=== PATIENT | female | born 1945 | race Caucasian/White ===

== ENCOUNTER → 2018-08-22 08:59 | Outpatient (CLI) | payer MEDICARE, SELFPAY ==
[2018-08-22 10:02] LABS: Add Manual Diff / Slide Review NO; Basophils Absolute Auto 0 /uL (0-100); Basophils Percent Auto 0.2 % (0-2); Eosinophils Absolute Auto 0 /uL (0-450); Eosinophils Percent Auto 1.1 % (2-4); Hematocrit 39.3 % (36-46); Lymphocytes Absolute Auto 1500 /uL (1100-4500); Lymphocytes Percent Auto 34.3 % (25-40); Mean Corpuscular HGB Conc 33.1 % (30-36); Mean Corpuscular Hemoglobin 31.2 PG (26-34); Mean Corpuscular Volume 94.1 fL (80-100); Monocytes Absolute Auto 400 /uL (0-900); Monocytes Percent Auto 9.1 % (3-14); Neutrophils Absolute Auto 2400 /uL (1500-7000); Neutrophils Percent Auto 55.3 % (50-75); Platelet Count 209 X10^3/uL (150-400); Red Blood Cell Count 4.17 X10^6/uL (4.0-5.2); Red Cell Distribution Width 13.1 % (11.6-14.8); White Blood Cell Count 4.3 X10^3/uL (4.5-11.0)
[2018-08-22 10:51] LABS: Alanine Aminotransferase 30 IU/L (9-52); Albumin 4.3 g/dL (3.5-5.0); Albumin Globulin Ratio 1.7 (1.0-2.8); Alkaline Phosphatase 129 U/L (38-126); Aspartate Aminotransferase 25 IU/L (14-36); BUN Creatinine Ratio 22.5 (6-22); Blood Urea Nitrogen 18 mg/dL (7-17); Calcium 9.7 mg/dL (8.4-10.2); Carbon Dioxide 23 mmol/L (22-32); Chloride 109 mmol/L (98-107); Cholesterol 98 mg/dL (140-199); Estimated Glomerular Filt Rate > 60.0 mL/min (>60); Globulin 2.5 g/dL (1.7-4.1); Glucose 90 mg/dL (80-110); HDL Cholesterol 40 mg/dL (40-60); HEMOLYSIS < 15 (0-50); LDL Cholesterol Calculated 42 mg/dL (<100); Potassium 4.1 mmol/L (3.4-5.1); Sodium 141 mmol/L (137-145); Total Protein 6.8 g/dL (6.3-8.2); Triglycerides 78 mg/dL (35-150)
[2018-08-22 11:14] LABS: Thyroid Stimulating Hormone 3.93 uIU/mL (0.47-4.68)
== END ==
PROVIDERS: PCP Family Medicine; Visit Provider Family Medicine
DX: I10 Essential (primary) hypertension (principal); Z51.81 Encounter for therapeutic drug level monitoring
CPT/HCPCS: 36415; 80053; 80061; 84443; 85025

== ENCOUNTER → 2018-09-13 08:40 | Outpatient (CLI) | payer MEDICARE, SELFPAY ==
[2018-09-13 09:37] LABS: Appearance Urine UA CLEAR; Bilirubin Urine UA NEGATIVE (NEGATIVE); Color Urine UA YELLOW; Glucose Urine UA NEGATIVE (Negative); Ketones Urine UA NEGATIVE (NEGATIVE); Leukocyte Esterase Urine UA NEGATIVE (NEGATIVE); Nitrite Urine UA NEGATIVE (Negative); Occult Blood Urine UA NEGATIVE (Negative); Protein Urine UA NEGATIVE (Negative); Urobilinogen Urine UA 0.2 E.U./dL (0.2)
== END ==
PROVIDERS: PCP Family Medicine; Visit Provider Family Medicine
DX: R30.0 Dysuria (principal)
CPT/HCPCS: 81003

== ENCOUNTER 2019-01-03 10:07 | Emergency (ER) | payer MEDICARE, SELFPAY ==
[2019-01-03 10:10] VITALS: BP 155/67; PULSE 68; RESP 11; TEMP 36.3; O2SAT 100
--- NOTE | 2019-01-03 10:21 | DI.RAD.S_ITS ---
PROCEDURE: XR CHEST 1V INDICATIONS: chest pain TECHNIQUE: One view of the chest was acquired. COMPARISON: None. FINDINGS: Surgical changes and devices: None. Lungs and pleura: Lungs are clear. No pleural effusions or pneumothorax. Mediastinum: Mediastinal contours appear normal. Heart size is normal. Bones and chest wall: No suspicious bony lesions. Overlying soft tissues appear unremarkable. IMPRESSION: No acute process. Dictated by: Yony Dover M.D. on 01/03/2019 at 10:31 Approved by: Yony Dover M.D. on 01/03/2019 at 10:31
[2019-01-03 10:40] LABS: Add Manual Diff / Slide Review NO; Basophils Absolute Auto 0 /uL (0-100); Basophils Percent Auto 0.3 % (0-2); Eosinophils Absolute Auto 0 /uL (0-450); Eosinophils Percent Auto 0.5 % (2-4); Hematocrit 38.6 % (36-46); Hemoglobin 12.8 g/dL (12.0-16.0); Lymphocytes Absolute Auto 800 /uL (1100-4500); Lymphocytes Percent Auto 12.2 % (25-40); Mean Corpuscular HGB Conc 33.2 % (30-36); Mean Corpuscular Hemoglobin 31.3 PG (26-34); Mean Corpuscular Volume 94.3 fL (80-100); Monocytes Absolute Auto 400 /uL (0-900); Monocytes Percent Auto 6.4 % (3-14); Neutrophils Absolute Auto 5000 /uL (1500-7000); Neutrophils Percent Auto 80.6 % (50-75); Platelet Count 178 X10^3/uL (150-400); Red Cell Distribution Width 13.1 % (11.6-14.8); White Blood Cell Count 6.1 X10^3/uL (4.5-11.0)
--- NOTE | 2019-01-03 10:47 | DI.CT.S_ITS ---
PROCEDURE: CT HEAD/BRAIN WO CON INDICATIONS: vertigo like symptoms TECHNIQUE: Noncontrast 4.5 mm thick angled axial sections acquired from the foramen magnum to the vertex, with coronal and sagittal reformats. For radiation dose reduction, the following was used: automated exposure control, adjustment of mA and/or kV according to patient size. COMPARISON: None. FINDINGS: Image quality: Diagnostic. CSF spaces: Basal cisterns are patent. No extra-axial fluid collections. Ventricles are normal in size and shape. Brain: No midline shift. No intracranial masses or hemorrhage. Billings-white matter interface is normal. Subtle areas of low attenuation appear to be present within the periventricular white matter of the supratentorial brain most appreciable in the bilateral frontal regions. Skull and face: Calvarium and visualized facial bones are intact, without suspicious lesions. Sinuses: Visualized sinuses and mastoids are clear. IMPRESSION: 1. No acute intracranial hemorrhage. 2. Mild chronic small vessel ischemic changes appear to be present. Dictated by: Chapo Laguerre M.D. on 01/03/2019 at 10:02 Approved by: Chapo Laguerre M.D. on 01/03/2019 at 10:04
[2019-01-03 10:48] LABS: INR 1.1 (0.9-1.3); Prothrombin Time 12.2 SECONDS (10.1-12.7)
[2019-01-03 10:50] LABS: Alanine Aminotransferase 27 IU/L (9-52); Albumin 4.2 g/dL (3.5-5.0); Albumin Globulin Ratio 1.7 (1.0-2.8); Alkaline Phosphatase 110 U/L (38-126); Aspartate Aminotransferase 23 IU/L (14-36); BUN Creatinine Ratio 31.7 (6-22); Bilirubin Total 0.8 mg/dL (0.2-1.3); Blood Urea Nitrogen 19 mg/dL (7-17); Calcium 9.2 mg/dL (8.4-10.2); Carbon Dioxide 22 mmol/L (22-32); Chloride 113 mmol/L (98-107); Creatine Kinase 56 U/L (30-135); Estimated Glomerular Filt Rate > 60.0 mL/min (>60); Globulin 2.5 g/dL (1.7-4.1); Glucose 121 mg/dL (80-110); HEMOLYSIS < 15 (0-50); Lipase 104 U/L (23-300); Potassium 3.5 mmol/L (3.4-5.1); Sodium 142 mmol/L (137-145); Total Protein 6.7 g/dL (6.3-8.2)
[2019-01-03 10:51] LABS: PTT Partial Thromboplastin Tim 33 SECONDS (26.4-36.2)
--- NOTE | 2019-01-03 10:58 | ED_ITS ---
HPI - Dizziness General Chief Complaint: Dizziness Stated Complaint: dizzy/cold sweats/nausea today Time Seen by Provider: 01/03/19 10:31 Source: patient Mode of arrival: Ambulatory Limitations: no limitations History of Present Illness HPI Narrative: This is a 73-year-old female comes to the emergency department wi th complaint of dizziness, she states that she woke up this morning at a.m. and felt normal, woke up again at 7:30 a.m. and felt dizzy like the room was spinning. She states she was walking around like a drunk person. She started to feel better had a drink coffee still had some symptoms had an episode of vomiting and then felt better. She has not had similar symptoms in the past. She had some allergy symptoms several weeks ago but no recent nasal congestion or cold. She has had some buzzing in her ears the last several days. She has had some mild headache just on the right side behind her eyes. 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 She denies any chest pain, pressure or shortness of breath. She denies any nausea currently. She denies any new issues with bowel movements but has chronic diarrhea and states has had issues with incontinence and now has a [employer]tr[employer] device to help control her bowels. She has had no urinary changes. She takes lisinopril daily and was increased to 40 mg several months ago. She denies any other medical issues recently. She has had a cholecystectomy, a gastric bypass in 1975, Medtronic device placed, appendectomy. No tobacco, rare alcohol, no illicit. Related Data Previous Rx's Medication Instructions Recorded lisinopril 40 mg tablet 40 mg PO DAILY #90 tab 11/08/18 meclizine 25 mg PO TID PRN #20 tab 01/03/19 Allergies Allergy/AdvReac Type Severity Reaction Status Date / Time codeine [CODEINE] Allergy Unknown Verified 01/03/19 10:19 Penicillins [PENICILLINS] Allergy Unknown Verified 01/03/19 10:19 Sulfa (Sulfonamide Allergy Unknown Verified 01/03/19 10:19 Antibiotics) [SULFA (SULFONAMIDE ANTIBIOTICS)] TAPE Allergy Unknown Uncoded 11/08/18 13:27 Review of Systems Review of Systems ROS Unobtainable: All systems reviewed & are unremarkable except as noted in HPI and below Constitutional Constitutional: Denies chills, Denies fever(s), Reports headache(s), Denies lethargy and Denies weakness Eyes Eyes: Reports change in vision (slowly, no acute change) and Denies diplopia ENT Ears, Nose, Mouth, and Throat: Reports as per HPI, Reports vertigo, Denies otalgia, Reports headache(s), Denies hearing loss (buzzing in ears present for several days.), Denies nasal congestion, Reports disequilibrium, Reports tinnitus and Denies other (facial droop) Cardiovascular Cardiovascular: Denies chest pain, Denies syncope, Denies edema, Denies lightheadedness, Denies palpitations, Denies dyspnea and Denies dyspnea on exertion Respiratory Respiratory: Denies chest congestion, Denies cough, Denies dyspnea and Denies dyspnea on exertion Gastrointestinal Gastrointestinal: Denies abdominal pain, Denies change in bowel habits, Reports fecal incontinence (has medtronic device in place, no recent episodes), Reports diarrhea (chronic), Reports nausea (now resolved) and Reports vomiting (now resolved) Genitourinary Genitourinary: Denies hematuria, Denies urinary frequency, Denies dysuria, Denies flank pain, Denies urinary incontinence and Denies urinary urgency Musculoskeletal Musculoskeletal: Denies muscle weakness, Denies numbness and Denies tingling Integumentary/Breasts Skin/Breast: Denies rash Neurologic Neurologic: Reports as per HPI, Denies abnormal speech, Denies confusion, Reports vertigo, Denies syncope, Reports headache(s), Denies focal weakness, Denies numbness, Denies sensory deficit, Denies tingling, Denies paresthesias, Reports disequilibrium and Denies weakness Psychiatric Psychiatric: Denies confusion Endocrine Endocrine: Denies palpitations [facility] Medical History Chickenpox (Resolved 1954) Colon polyps (Resolved 1989) Fecal incontinence (Resolved 2015) Fractures (Resolved 1960) Generalized headaches (Resolved Unknown) Hypertension (Chronic 2004) Measles (Resolved 1960) Osteopenia (Chronic 06/2005) Surgical History History of gastric bypass History of rectal surgery (Resolved 1990) Hx of appendectomy (Resolved 1957) Hx of cholecystectomy (Resolved 1964) Family History (Updated 09/11/17 @ 17:36 by Chanell Espinosa LPN) Child Age: 52 Diabetes mellitus Child Age: 47 Diabetes mellitus Sister Age: 66 Diabetes mellitus Sister Age: 64 Diabetes mellitus Sister Age: 62 Diabetes mellitus Family/Other No problems noted. Family/Other No problems noted. Mother Parkinson disease Hypertension Grandfather Heart attack Grandmother Cancer Grandfather No problems noted. Grandmother No problems noted. Father Diabetes mellitus Hypertension Heart disease Social History Smoking Status: Never smoker Family History Child Age: 52 Diabetes mellitus Child Age: 47 Diabetes mellitus Sister Age: 66 Diabetes mellitus Sister Age: 64 Diabetes mellitus Sister Age: 62 Diabetes mellitus Family/Other No problems noted. Family/Other No problems noted. Mother Parkinson disease Hypertension Grandfather Heart attack Grandmother Cancer Grandfather No problems noted. Grandmother No problems noted. Father Diabetes mellitus Hypertension Heart disease Social History (Updated 01/03/19 @ 11:27 by Zena Nieves DO) Smoking Status: Never smoker alcohol intake: current substance use type: does not use Exam Narrative Exam Narrative: GEN: well nourished, well appearing elderly female, alert and oriented x 3, patient appears to be in mild distress. HEENT: Atraumatic, pupils are equal round reactive to light, extraocular movements are intact, no nystagmus, [place]-Hallpike is negative, nares are clear, TMs are clear with no fluid, there is no conjunctival pallor. Throat is clear without any exudates, erythema, tonsillar enlargement or uvular deviation, no facial droop. HEART: Regular rate and rhythm without murmur, clicks, rubs. LUNGS:Lungs clear to auscultation, no wheezes, rales, crackles, chest moves symmetrically ABD:bowel sounds normal, soft, non-tender, no guarding, rebound, rigidity, no masses noted, no hepatosplenomegaly MSCL: Non-tender, no muscle atrophy, muscles strength 5/5 upper and lower extremities, full range of motion NEURO:CN 2-12 intact, sensation normal, reflexes 2/4 upper and lower extremities. finger nose finger test normal, heel andino test normal SKIN: no rash, no petechiae, no ecchymosis. Initial Vital Signs Initial Vital Signs: Vital Signs Temperature 97.4 F L 01/03/19 10:10 Pulse Rate 68 01/03/19 10:10 Respiratory Rate 11 L 01/03/19 10:10 Blood Pressure 155/67 H 01/03/19 10:10 Pulse Oximetry 100 01/03/19 10:10 Scores NIH Stroke Scale Level of Conciousness: Alert, keenly responsive Ask month/age: Answers both questions correctly. Open/close eyes, close hand: Performs both tasks correctly Best gaze horizontal: Normal Visual simons: No visual loss Facial palsy: Normal symetrical movement Left arm drift: No drift for full 10 sec Right arm drift: No drift for full 10 sec Left leg drift: No drift for full 10 sec Right leg drift: No drift for full 10 sec Limb ataxia: Absent Sensory on face/arms/legs: Normal, no sensory loss Best language: No aphasia, normal Dysarthria: Normal Extinction or inattention: No abnormality Total NIH Stroke scale score: 0 Course Orders Ordered: Discontinued Medications Meclizine HCl (Antivert) 25 mg PO NOW ONE Stop: 01/03/19 10:48 Last Admin: 01/03/19 11:02 Dose: 25 mg Documented by: STEFFANIE Vital Signs Vital signs: Vital Signs - 8 hr 01/03/19 10:10 01/03/19 11:00 Temperature 97.4 F L Pulse Rate 68 68 Respiratory Rate 11 L 13 Blood Pressure 155/67 H Blood Pressure [Left Arm] 150/61 H Pulse Oximetry 100 100 MDM - Dizziness Lab Data Attestation: I reviewed the patient's lab results. Result diagrams: 01/03/19 10:24 01/03/19 10:24 Labs: Lab Results 01/03/19 01/03/19 01/03/19 Range/Units 10:24 10:24 10:24 WBC 6.1 (4.5-11.0) X10^3/uL RBC 4.10 (4.0-5.2) X10^6/uL Hgb 12.8 (12.0-16.0) g/dL Hct 38.6 (36-46) % MCV 94.3 (80-100) fL MCH 31.3 (26-34) PG MCHC 33.2 (30-36) % RDW 13.1 (11.6-14.8) % Plt Count 178 (150-400) X10^3/uL Neut % (Auto) 80.6 H (50-75) % Lymph % (Auto) 12.2 L (25-40) % [place] % (Auto) 6.4 (3-14) % Eos % (Auto) 0.5 L (2-4) % Baso % (Auto) 0.3 (0-2) % Neut # (Auto) 5000 (7623-4213) /uL Lymph # (Auto) 800 L (2109-3670) /uL [place] # (Auto) 400 (0-900) /uL Eos # (Auto) 0 (0-450) /uL Baso # (Auto) 0 (0-100) /uL PT 12.2 (10.1-12.7) SECONDS INR 1.1 (0.9-1.3) APTT 33 (26.4-36.2) SECONDS Sodium 142 (137-145) mmol/L Potassium 3.5 (3.4-5.1) mmol/L Chloride 113 H (98-107) mmol/L Carbon Dioxide 22 (22-32) mmol/L BUN 19 H (7-17) mg/dL Creatinine 0.60 (0.52-1.04) mg/dL Estimated GFR > 60.0 (>60) mL/min BUN/Creatinine Ratio 31.7 H (6-22) Glucose 121 H (80-110) mg/dL Calcium 9.2 (8.4-10.2) mg/dL Total Bilirubin 0.8 (0.2-1.3) mg/dL AST 23 (14-36) IU/L ALT 27 (9-52) IU/L Alkaline Phosphatase 110 (38-126) U/L Total Creatine Kinase 56 (30-135) U/L CK-MB (CK-2) TNP CK-MB (CK-2) Rel Index TNP Troponin I < 0.012 (0.01-0.034) ng/mL Total Protein 6.7 (6.3-8.2) g/dL Albumin 4.2 (3.5-5.0) g/dL Globulin 2.5 (1.7-4.1) g/dL Albumin/Globulin Ratio 1.7 (1.0-2.8) Lipase 104 (23-300) U/L Imaging Data CT scan - head: Radiologist's impression: [address] [address] [address] Scan Report Signed Patient: Charline Castro [facility]#: [id number] : 5Acct:[id number] Age/Sex: 73 / FDate of Service: 01/03/19 Loc: ED Accession Number: [id number] Procedure: CT head/brain wo con Ordering Provider: Zena Nieves D.O. PROCEDURE: CT HEAD/BRAIN WO CON INDICATIONS: vertigo like symptoms TECHNIQUE: Noncontrast 4.5 mm thick angled axial sections acquired from the foramen magnum to the vertex, with coronal and sagittal reformats. For radiation dose reduction, the following was used: automated exposure control, adjustment of mA and/or kV according to patient size. COMPARISON: None. FINDINGS: Image quality: Diagnostic. CSF spaces: Basal cisterns are patent. No extra-axial fluid collections. Ventricles are normal in size and shape. Brain: No midline shift. No intracranial masses or hemorrhage. Bill[place]-white matter interface is normal. Subtle areas of low attenuation appear to be present within the periventricular white matter of the supratentorial brain most appreciable in the bilateral frontal regions. Skull and face: Calvarium and visualized facial bones are intact, without suspicious lesions. Sinuses: Visualized sinuses and mastoids are clear. IMPRESSION: 1. No acute intracranial hemorrhage. 2. Mild chronic small vessel ischemic changes appear to be present. Dictated by: Chapo Laguerre M.D. on 01/03/2019 at 10:02 Approved by: Chapo Laguerre M.D. on 01/03/2019 at 10:04 Chest x-ray: Radiologist's impression: [address] [address] XRay Report Signed Patient: Charline Castro [facility]#: [id number] : 5Acct:[id number] Age/Sex: 73 / FDate of Service: 01/03/19 Loc: ED Accession Number: [id number] Procedure: XR chest 1V Ordering Provider: Zena Nieves D.O. PROCEDURE: XR CHEST 1V INDICATIONS: chest pain TECHNIQUE: One view of the chest was acquired. COMPARISON: None. FINDINGS: Surgical changes and devices: None. Lungs and pleura: Lungs are clear. No pleural effusions or pneumothorax. Mediastinum: Mediastinal contours appear normal. Heart size is normal. Bones and chest wall: No suspicious bony lesions. Overlying soft tissues appear unremarkable. IMPRESSION: No acute process. Dictated by: Yony Dover M.D. on 01/03/2019 at 10:31 Approved by: Yony Dover M.D. on 01/03/2019 at 10:31 ECG Data Attestation: I personally reviewed and interpreted this ECG as follows: Prior ECG tracings: not available for review Interpretation: Sinus rhythm rate of 62 VA 182 QRS of 93 and QTC of 405. Nonspecific ST change. MDM Narrative Medical decision making narrative: Patient comes in with acute onset of vertigo, patient woke up with it she is actually feeling much better at this time. Patient on exam has a negative NIH with no acute neurologic deficits. [place]- Hallpike was negative for BPPV, head CT and lab work show no acute changes, EKG does not show any acute changes today indicating a cardiac cause, chest x-ray is negative. Lab work shows neutrophils at 80%, normal coags, normal chemistry with negative troponin. Glucose is 121, BUN is 19 with a chloride of 113 but otherwise normal electrolytes. Discussed with patient my suspicion for a CVA or TIA being the cause of her symptoms as much lower without any other neurologic findings. Patient and I discussed follow-up with ENT as needed. If she continues to fine meclizine helpful she can continue with this. Patient ambulated without issue in department and states that she ambulated into the ER without issue. Discharge Plan Departure Patient Disposition: Home Clinical Impression: Vertigo Discharge Date/Time: 01/03/19 11:59 Instructions: DI for Vertigo Activity Restrictions/Additional Instructions: Follow-up with primary care and/or ENT in the next 2-3 days if your symptoms are not resolving. Call for an appointment. You may continue meclizine 1-2 tablets every 8 hours as needed for symptoms. Medication can make you sleepy so do not drive, perform hazardous activities or make any major decisions while taking it. Your prescription was sent to [facility] in [place]. Return to the emergency department for new neurologic changes, fevers greater 100.4 F, new weakness, numbness, inability to use your extremities, new difficulty with speech, sudden severe headaches, sudden vision changes, persistent vomiting, lightheadedness, passing out or other new or concerning s ymptoms. Prescriptions: New meclizine 25 mg tablet,chewable 25 mg PO TID PRN (Reason: dizziness) Qty: 20 RF: 0 No Action lisinopril 40 mg tablet 40 mg PO DAILY Qty: 90 RF: 1 Referrals: Willian Arenas MD [Physician] - Reena Sotomayor DO [Primary Care Provider] -
[2019-01-03 11:00] VITALS: BP 150/61; PULSE 68; RESP 13; O2SAT 100
[2019-01-03 11:02] LABS: Troponin I < 0.012 ng/mL (0.01-0.034)
[2019-01-03] MEDS: MECLIZINE HCL 12.5 MG TABLET 25 MG PO (11:02)
[2019-01-03 11:30] VITALS: BP 136/63; PULSE 66; RESP 14; O2SAT 100
== END 2019-01-03 11:59 | disposition home or self-care (01) ==
PROVIDERS: Emergency Provider Emergency Medicine; PCP Family Medicine
DX: R42 Dizziness and giddiness (principal); R07.9 Chest pain, unspecified
CPT/HCPCS: 36415; 70450; 71045; 80053; 82550; 83690; 84484; 85025; 85610; 85730; 93005; 99283; 99285

== ENCOUNTER 2019-06-16 08:05 | Emergency (ER) | payer MEDICARE, SELFPAY ==
[2019-06-16 08:14] VITALS: BP 188/86; PULSE 67; RESP 18; TEMP 36.8; O2SAT 99; BMI 22.8
--- NOTE | 2019-06-16 08:22 | DI.RAD.S_ITS ---
PROCEDURE: XR CHEST 1V INDICATIONS: chest pain TECHNIQUE: One view of the chest was acquired. COMPARISON: [facility], CR, XR CERVICAL SPINE 2V OR 3V, 06/16/2019, 8:42. [facility], CR, XR SHOULDER LT MIN 2V, 06/16/2019, 8:40. [facility], CR, XR CHEST 1V, 01/03/2019, 10:25. FINDINGS: Surgical changes and devices: None. Lungs and pleura: An incomplete inspiratory result is noted, causing a crowded appearance to the lung markings. No focal infiltrates are seen. No pneumothorax or significant pleural effusions are seen. Mediastinum: Mediastinal contours appear normal. Heart size is normal. Bones and chest wall: No suspicious bony lesions. Age-appropriate bony degenerative changes are seen. Overlying soft tissues appear unremarkable. IMPRESSION: Portable chest within normal limits. Dictated by: Cedric Jimenez M.D. on 06/16/2019 at 8:12 Approved by: Cedric Jimenez M.D. on 06/16/2019 at 8:13
--- NOTE | 2019-06-16 08:33 | DI.RAD.S_ITS ---
PROCEDURE: XR SHOULDER LT MIN 2V INDICATIONS: no fall left shoulder pain TECHNIQUE: 3 views of the shoulder were acquired. COMPARISON: [facility], CR, XR CHEST 1V, 06/16/2019, 8:34. [facility], CR, XR CERVICAL SPINE 2V OR 3V, 06/16/2019, 8:42. FINDINGS: Bones: No fractures or dislocations. No suspicious bony lesions. Visualized ribs appear intact. Age-appropriate bony degenerative changes are seen. Soft tissues: No suspicious soft tissue calcifications. The visualized lung demonstrates an unremarkable appearance. IMPRESSION: Unremarkable imaging examination for age. Dictated by: Cedric Jimenez M.D. on 06/16/2019 at 8:13 Approved by: Cedric Jimenez M.D. on 06/16/2019 at 8:14
--- NOTE | 2019-06-16 08:33 | DI.RAD.S_ITS ---
PROCEDURE: XR CERVICAL SPINE 2V OR 3V INDICATIONS: tender posterior thoracic-cervical spine junction TECHNIQUE: 3 view(s) of the cervical spine were acquired. COMPARISON: [facility], CR, XR CHEST 1V, 06/16/2019, 8:34. [facility], CR, XR SHOULDER LT MIN 2V, 06/16/2019, 8:40. FINDINGS: Bones: No fractures or dislocations to the C7 level. The lateral masses of C1 appear intact on the odontoid view. No suspicious bony lesions. Moderate degenerative changes are seen throughout. Soft tissues: No prevertebral soft tissue swelling. The visualized lung apices are unremarkable. IMPRESSION: No acute plain film abnormality is seen. If there is point tenderness (or other clinical suspicion for a fracture not seen on these images) then a dedicated CT could be considered for further evaluation, as clinically appropriate. Dictated by: Cedric Jimenez M.D. on 06/16/2019 at 8:14 Approved by: Cedric Jimenez M.D. on 06/16/2019 at 8:14
--- NOTE | 2019-06-16 08:36 | ED_ITS ---
HPI - Chest Pain General Chief Complaint: Chest Pain Stated Complaint: shoulder left pain down arm and up neck Time Seen by Provider: 06/16/19 08:23 Source: patient Mode of arrival: Ambulatory History of Present Illness HPI narrative: The patient is a 73-year-old female who presents to the emergency department today with pain that developed in her left shoulder on awakening. She woke up at 5:00 a.m. in the morning. The pain moved care home down her arm almost to her elbow. The patient denies any fall or injury. She denies any chest pain. She states that the pain and discomfort started after she moved her kitchen island, wrought iron stove and furniture. She denies any chest pain or shortness of breath or she states that with the pain and discomfort she felt a little bit dizzy and lightheaded. She has had nausea without any vomiting. The pain is worse with arm movement of her shoulder. She has had no racing of the heart and no vomiting. She denies a history of diabetes mellitus myocardial infarction COPD and asthma. She has had a history of gastric bypass surgery. Yesterday she dropped a cast iron stove on her left great toe. She denies any pain or discomfort in her toe at this time. She denies that she has ever smoke cigarettes and does not drink alcohol. She denies any headache. She states that if she had aspirin she would not have come into the emergency department. She put a pain patch on her shoulder which has helped to relieve some of the pain and discomfort but it is not completely gone. She states that her pain and discomfort with 7 to 8/10 in intensity. She denies any history of kidney charan lure or pain in her toe. She states that the only medication she is on is on 40 mg of lisinopril. She states that she has a stimulator in her back arm in order to urinate.. Related Data Previous Rx's Medication Instructions Recorded lisinopril 40 mg tablet 40 mg PO DAILY #90 tab 11/08/18 cyclobenzaprine 10 mg PO TID PRN #15 tab 06/16/19 hydrocodone-acetaminophen [Dennis] 1 tab PO Q4-6H PRN #10 tab 06/16/19 lidocaine [Lidoderm] 2 patch TOP DAILY #10 each 06/16/19 naproxen [Naprosyn] 500 mg PO BID PRN #10 tab 06/16/19 Allergies Allergy/AdvReac Type Severity Reaction Status Date / Time adhesive tape Allergy Unknown Verified 06/16/19 08:52 codeine [CODEINE] Allergy Unknown Verified 05/25/19 15:27 Penicillins [PENICILLINS] Allergy Unknown Verified 05/25/19 15:27 Sulfa (Sulfonamide Allergy Unknown Verified 05/25/19 15:27 Antibiotics) [SULFA (SULFONAMIDE ANTIBIOTICS)] Review of Systems Review of Systems Narrative: Review of systems were all negative except for those mentioned in history of present illness. Patient History Medical History Chickenpox (Resolved 1954) Colon polyps (Resolved 1989) Fecal incontinence (Resolved 2015) Fractures (Resolved 1960) Generalized headaches (Resolved Unknown) Hypertension (Chronic 2004) Measles (Resolved 1960) Osteopenia (Chronic 06/2005) Surgical History History of gastric bypass History of rectal surgery (Resolved 1990) Hx of appendectomy (Resolved 1957) Hx of cholecystectomy (Resolved 1964) Family History Child Age: 53 Diabetes mellitus Child Age: 48 Diabetes mellitus Sister Age: 67 Diabetes mellitus Sister Age: 65 Diabetes mellitus Sister Age: 63 Diabetes mellitus Family/Other No problems noted. Family/Other No problems noted. Mother Parkinson disease Hypertension Grandfather Heart attack Grandmother Cancer Grandfather No problems noted. Grandmother No problems noted. Father Diabetes mellitus Hypertension Heart disease Social History Smoking Status: Never smoker alcohol intake: current substance use type: does not use Smoking Status: Never smoker alcohol intake frequency: 0-2 drinks per day Substance Use Type: does not use Exam Narrative Exam Narrative: PHYSICAL EXAM: CONSTITUTIONAL: Awake, Alert, Oriented, Coherent, Cooperative in NAD. Does not appear toxic or ill. She appears mildly pale and bartholomew to me. HEAD: AT/NC EENT: PERRL, FROM of eyes, no discharge, Oral mucosa is moist and pink, posterior pharynx is without erythema or exudate. NECK: Supple, no obvious JVD, Trachea is midline without stridor, no palpable LN SPINE: No gross deformity, the junction between the thoracic and cervical spine is mildly tender. She has no tenderness otherwise over her upper cervical or lower thoracic lumbar or sacral spine. There is no costovertebral angle tenderness. There is mild tenderness to palpation over the lower paraspinous cervical muscles and trapezius muscles over the shoulder. She is tender to palpation over her middle clavicle and shoulder. She is able to flex and abduct and adduct her shoulder with some discomfort. She is able to flex and extend her elbow on the left. THORAX: No deformity, retractions, chest wall tenderness, LUNGS: Clear with symmetrical breath sounds without respiratory distress HEART: Normal heart tones, regular rhythm and rate without murmur. ABDOMEN: Soft, non-tender, normal bowel sounds without guarding, rebound, rigidity or palpable mass EXTREMITIES: No edema, cyanosis, deformity or tenderness. SKIN: No rash, bruising, petechiae or purpura. NEURO: Awake, alert, oriented, conversive, cranial nerves II-XII are symmetrical and normal, moves all 4 extremities and is ambulatory Initial Vital Signs Initial Vital Signs: Vital Signs Temperature 98.2 F 06/16/19 08:14 Pulse Rate 67 06/16/19 08:14 Respiratory Rate 18 06/16/19 08:14 Blood Pressure 188/86 H 06/16/19 08:14 Pulse Oximetry 99 06/16/19 08:14 Course Course Course Narrative: 1118 the patient has a mild headache and her blood pressure is 192/85 the patient did not take her lisinopril this morning. The patient's CT scan of her neck remains pending. Patient was informed of the delay. 12:07 CT scan of the patient's neck has been completed however the results remain pending. 1217 CT scan reveals that the patient has advanced degenerative arthritis but no fractures or malalignment. Orders Ordered: Discontinued Medications Cyclobenzaprine HCl (Flexeril) 10 mg PO NOW ONE Stop: 06/16/19 08:34 Last Admin: 06/16/19 09:16 Dose: 10 mg Documented by: STEFFANIE Hydralazine HCl (Apresoline) 5 mg IV NOW ONE Stop: 06/16/19 11:19 Last Admin: 06/16/19 11:28 Dose: 5 mg Documented by: STEFFANIE Ketorolac Tromethamine (Toradol) 15 mg IV NOW ONE Stop: 06/16/19 08:34 Last Admin: 06/16/19 09:15 Dose: 15 mg Documented by: STEFFANIE Vital Signs Vital signs: Vital Signs - 8 hr 06/16/19 08:14 06/16/19 10:54 06/16/19 11:28 Temperature 98.2 F Pulse Rate 67 63 68 Respiratory Rate 18 20 Blood Pressure 188/86 H 170/74 H Blood Pressure [Right Arm] 192/86 H Pulse Oximetry 99 99 06/16/19 11:38 Temperature Pulse Rate 72 Respiratory Rate 16 Blood Pressure Blood Pressure [Right Arm] 189/79 H Pulse Oximetry 100 MDM - Chest Pain Lab Data Result diagrams: 06/16/19 08:45 06/16/19 08:45 Labs: Lab Results 06/16/19 06/16/19 06/16/19 Range/Units 08:45 08:45 08:45 WBC 6.0 (4.5-11.0) X10^3/uL RBC 3.99 L (4.0-5.2) X10^6/uL Hgb 12.4 (12.0-16.0) g/dL Hct 37.6 (36-46) % MCV 94.3 (80-100) fL MCH 31.0 (26-34) PG MCHC 32.9 (30-36) % RDW 13.3 (11.6-14.8) % Plt Count 190 (150-400) X10^3/uL Neut % (Auto) 76.3 H (50-75) % Lymph % (Auto) 13.3 L (25-40) % Ector % (Auto) 9.2 (3-14) % Eos % (Auto) 0.7 L (2-4) % Baso % (Auto) 0.5 (0-2) % Neut # (Auto) 4600 (7568-8777) /uL Lymph # (Auto) 800 L (9696-9765) /uL Ector # (Auto) 600 (0-900) /uL Eos # (Auto) 0 (0-450) /uL Baso # (Auto) 0 (0-100) /uL PT 13.6 H (10.1-12.7) SECONDS INR 1.2 (0.9-1.3) APTT 32 (26.4-36.2) SECONDS Sodium 141 (137-145) mmol/L Potassium 3.3 L (3.4-5.1) mmol/L Chloride 112 H (98-107) mmol/L Carbon Dioxide 24 (22-32) mmol/L BUN 14 (7-17) mg/dL Creatinine 0.41 L (0.52-1.04) mg/dL Estimated GFR > 60.0 (>60) mL/min BUN/Creatinine Ratio 34.1 H (6-22) Glucose 101 (80-110) mg/dL Calcium 9.1 (8.4-10.2) mg/dL Total Bilirubin 1.0 (0.2-1.3) mg/dL AST 27 (14-36) IU/L ALT 21 (<35) IU/L Alkaline Phosphatase 127 H (38-126) U/L Total Creatine Kinase 68 (30-135) U/L CK-MB (CK-2) TNP CK-MB (CK-2) Rel Index TNP Troponin I < 0.012 (0.01-0.034) ng/mL Total Protein 6.9 (6.3-8.2) g/dL Albumin 4.3 (3.5-5.0) g/dL Globulin 2.6 (1.7-4.1) g/dL Albumin/Globulin Ratio 1.7 (1.0-2.8) Lipase 65 (23-300) U/L ECG Data Attestation: I personally reviewed and interpreted this ECG as follows: Interpretation: The patient's EKG obtained on June 15 at 08:3 1:54 a.m. reveals a sinus rhythm with a ventricular rate of 70. Intervals are normal. [place] is normal. The patient has no acute diagnostic ST or T-wave changes. T- waves are flat in lead III. Discharge Plan Departure Patient Disposition: Home Clinical Impression: Acute shoulder pain Qualifiers: Laterality: left Qualified Code(s): M25.512 - Pain in left shoulder Shoulder sprain Qualifiers: Encounter type: initial encounter Shoulder sprain type: unspecified sprain Laterality: left Qualified Code(s): S43.402A - Unspecified sprain of left shoulder joint, initial encounter Discharge Date/Time: 06/16/19 12:57 Instructions: DI for Muscle Strain, DI for Shoulder Sprain Activity Restrictions/Additional Instructions: 1. Follow-up with your primary care physician in 48-72 hours to be re-evaluated. If you develop worsening pain, chest pain, shortness of breath, racing of your heart and palpitations, dizziness or passing-out you need to proceed to the nearest emergency department. 2. Take the Naprosyn and cyclobenzaprine as prescribed for your pain and discomfort. For severe pain and discomfort you can take the Dennis as prescribed as a rescue medication. 3. Apply cold compresses to the shoulder in were over it aches every 2 hours for the next 24 hours while awake for 20 minutes. After that you can apply warm compresses. 4. Your x-rays revealed that there were no fractures. Prescriptions: New naproxen [Naprosyn] 500 mg tablet 500 mg PO BID PRN (Reason: pain) Qty: 10 RF: 0 cyclobenzaprine 10 mg tablet 10 mg PO TID PRN (Reason: muscle spasm) Qty: 15 RF: 0 hydrocodone-acetaminophen [Dennis] 5-325 mg tablet 1 tab PO Q4-6H PRN (Reason: pain) Qty: 10 RF: 0 lidocaine [Lidoderm] 5 % adhesive patch,medicated 2 patch TOP DAILY Qty: 10 RF: 0 No Action lisinopril 40 mg tablet 40 mg PO DAILY Qty: 90 RF: 1 Referrals: Reena Sotomayor DO [Primary Care Provider] -
[2019-06-16 08:53] LABS: Add Manual Diff / Slide Review NO; Basophils Absolute Auto 0 /uL (0-100); Basophils Percent Auto 0.5 % (0-2); Eosinophils Absolute Auto 0 /uL (0-450); Eosinophils Percent Auto 0.7 % (2-4); Hematocrit 37.6 % (36-46); Hemoglobin 12.4 g/dL (12.0-16.0); Lymphocytes Absolute Auto 800 /uL (1100-4500); Lymphocytes Percent Auto 13.3 % (25-40); Mean Corpuscular HGB Conc 32.9 % (30-36); Mean Corpuscular Volume 94.3 fL (80-100); Monocytes Absolute Auto 600 /uL (0-900); Monocytes Percent Auto 9.2 % (3-14); Neutrophils Absolute Auto 4600 /uL (1500-7000); Neutrophils Percent Auto 76.3 % (50-75); Platelet Count 190 X10^3/uL (150-400); Red Blood Cell Count 3.99 X10^6/uL (4.0-5.2); Red Cell Distribution Width 13.3 % (11.6-14.8)
[2019-06-16 08:59] LABS: INR 1.2 (0.9-1.3); Prothrombin Time 13.6 SECONDS (10.1-12.7)
[2019-06-16 09:01] LABS: PTT Partial Thromboplastin Tim 32 SECONDS (26.4-36.2)
[2019-06-16 09:03] LABS: Alanine Aminotransferase 21 IU/L (<35); Albumin 4.3 g/dL (3.5-5.0); Albumin Globulin Ratio 1.7 (1.0-2.8); Alkaline Phosphatase 127 U/L (38-126); Aspartate Aminotransferase 27 IU/L (14-36); BUN Creatinine Ratio 34.1 (6-22); Blood Urea Nitrogen 14 mg/dL (7-17); Calcium 9.1 mg/dL (8.4-10.2); Carbon Dioxide 24 mmol/L (22-32); Chloride 112 mmol/L (98-107); Creatine Kinase 68 U/L (30-135); Estimated Glomerular Filt Rate > 60.0 mL/min (>60); Globulin 2.6 g/dL (1.7-4.1); Glucose 101 mg/dL (80-110); HEMOLYSIS 35 (0-50); Lipase 65 U/L (23-300); Potassium 3.3 mmol/L (3.4-5.1); Sodium 141 mmol/L (137-145); Total Protein 6.9 g/dL (6.3-8.2)
[2019-06-16 09:15] LABS: Troponin I < 0.012 ng/mL (0.01-0.034)
[2019-06-16] MEDS: KETOROLAC 60 MG/2 ML VIAL 15 MG IV (09:15)
[2019-06-16] MEDS: CYCLOBENZAPRINE 10 MG TABLET PO (09:16)
--- NOTE | 2019-06-16 10:34 | DI.CT.S_ITS ---
PROCEDURE: CT CERVICAL SPINE WO CON INDICATIONS: no fall or injury, tender over lower c, upper t spine at junction TECHNIQUE: Noncontrast 3 mm thick sections acquired from the skull base to the T4 level. Sagittal and coronal reformats were then constructed. For radiation dose reduction, the following was used: automated exposure control, adjustment of mA and/or kV according to patient size. COMPARISON: [facility], CR, XR CERVICAL SPINE 2V OR 3V, 06/16/2019, 8:42. [facility], CR, XR SHOULDER LT MIN 2V, 06/16/2019, 8:40. [facility], CR, XR CHEST 1V, 06/16/2019, 8:34. FINDINGS: Image quality: Excellent. Bones: No fractures or dislocations. Visualized superior ribs are intact. Prominent degenerative changes are seen, with moderate to severe disc space narrowing at C3-C4, C4-C5, C5-C6, and C6-C7. Posteriorly directed osteophytes can be seen at these levels. Soft tissues: Prevertebral soft tissues are normal in thickness. No paravertebral hematomas. No apical pneumothoraces. IMPRESSION: Advanced degenerative changes, without acute fractures identified. Dictated by: Cedric Jimenez M.D. on 06/16/2019 at 11:05 Approved by: Cedric Jimenez M.D. on 06/16/2019 at 11:06
[2019-06-16 10:54] VITALS: BP 192/86; PULSE 63; RESP 20; O2SAT 99
[2019-06-16 11:28] VITALS: BP 170/74; PULSE 68
[2019-06-16] MEDS: HYDRALAZINE 20 MG/ML VIAL 5 MG IV (11:28)
[2019-06-16 11:38] VITALS: BP 189/79; PULSE 72; RESP 16; O2SAT 100
[2019-06-16 12:50] VITALS: BP 188/76; PULSE 85; RESP 18; O2SAT 100
== END 2019-06-16 12:57 | disposition home or self-care (01) ==
PROVIDERS: Emergency Provider Emergency Medicine; PCP Family Medicine
DX: M25.512 Pain in left shoulder (principal); S43.402A Unspecified sprain of left shoulder joint, initial encounter; I10 Essential (primary) hypertension; M54.2 Cervicalgia; M54.6 Pain in thoracic spine; X50.0XXA Overexertion from strenuous movement or load, initial encounter
CPT/HCPCS: 36415; 71045; 72040; 72125; 73030; 80053; 82550; 83690; 84484; 85025; 85610; 85730; 93005; 93010; 96374; 96375; 99285; J0360; J1885

== ENCOUNTER → 2019-09-27 11:02 | Outpatient (CLI) | payer MEDICARE, SELFPAY ==
--- NOTE | 2019-09-27 11:04 | DI.RAD.S_ITS ---
PROCEDURE: XR HAND LT MIN 3V INDICATIONS: pain in 3rd,4th,5th digit after fall TECHNIQUE: Three views of the hand(s) acquired. COMPARISON: [facility], CT, CT CERVICAL SPINE WO CON, 06/16/2019, 11:38. FINDINGS: Bones: No fractures or dislocations. Mild osteophytic change at the 1st CMC joint. Mild to moderate osteophytic change in the radiocarpal joints. Tiny remote avulsion fracture fragment in the radial styloid. Carpal bones are normally aligned. No suspicious bony lesions. Soft tissues: No suspicious soft tissue calcifications. IMPRESSION: No acute finding. Degenerative changes. Dictated by: Nishant Ledezma M.D. on 09/27/2019 at 12:18 Approved by: Nishant Ledezma M.D. on 09/27/2019 at 12:19
== END ==
PROVIDERS: PCP Family Medicine; Referring Provider Physician Assistant; Visit Provider Physician Assistant
DX: M79.642 Pain in left hand (principal)
CPT/HCPCS: 73130

== ENCOUNTER → 2020-06-24 14:24 | Outpatient (CLI) | payer MEDICARE, SELFPAY ==
[2020-06-24] MEDS: COVID-19 VACC #1, MRNA(MOD) 100 MCG/0.5 ML VIAL IM (14:32)
== END ==
PROVIDERS: PCP Family Medicine; Visit Provider Internal Medicine
DX: Z23 Encounter for immunization (principal)
CPT/HCPCS: 0011A; 91301

== ENCOUNTER → 2020-07-23 15:54 | Outpatient (CLI) | payer MEDICARE, SELFPAY ==
[2020-07-23] MEDS: COVID-19 VACC #2, MRNA(MOD) 100 MCG/0.5 ML VIAL IM (16:10)
== END ==
PROVIDERS: PCP Family Medicine; Visit Provider Internal Medicine
DX: Z23 Encounter for immunization (principal)
CPT/HCPCS: 0012A; 91301

== ENCOUNTER 2021-03-19 21:10 | Emergency (ER) | payer MEDICARE, SELFPAY ==
[2021-03-19 21:17] VITALS: BP 205/91; PULSE 84; RESP 17; TEMP 36.5; O2SAT 99; BMI 20.8
--- NOTE | 2021-03-19 21:29 | ED.EXTPRO ---
HPI - Extremity Problem General Chief complaint: Extremity Problem,Nontraumatic Stated complaint: rt elbow pain radiating up arm Time Seen by Provider: 03/19/21 21:24 Source: patient Mode of arrival: Ambulatory History of Present Illness HPI Narrative: Patient is a 75-year-old female who presents with right elbow pain. She says it started earlier this on the medial side. It radiates up her arm. She has no redness or fever. She denies any injury. She has no decreased range of motion. She put a pain patch on there but has not seemed to help. She did take some Tylenol earlier. Related Data Home Medications Medication Instructions Recorded Confirmed lisinopril 40 mg tablet 20 mg PO DAILY 03/19/21 12 Allergies Allergy/AdvReac Type Severity Reaction Status Date / Time adhesive tape Allergy Unknown Verified 03/19/21 21:21 codeine [CODEINE] Allergy Unknown Verified 03/19/21 21:21 Penicillins [PENICILLINS] Allergy Unknown Verified 03/19/21 21:21 Sulfa (Sulfonamide Allergy Unknown Verified 03/19/21 21:21 Antibiotics) [SULFA (SULFONAMIDE ANTIBIOTICS)] Review of Systems Review of Systems Narrative: GENERAL: Denies chills,fever HEENT: Denies throat pain RESPIRATORY: Denies dyspnea, cough, wheezing CARDIOVASCULAR: Denies chest pain, palpitations GASTROINTESTINAL: Denies nausea, vomiting MUSCULOSKELETAL: See HPI SKIN: No rash, no laceration, no pruritus NEUROLOGIC: Denies weakness, dizziness, headache, numbness 8 point review of systems is negative except for those stated above and HPI Patient History Medical History (Updated 03/19/21 @ 22:21 by Nancy Lynn DO) Chickenpox (1954) Colon polyps (1989) Fecal incontinence (2015) Fractures (1960) Generalized headaches (Unknown) Hypertension (2004) Measles (1960) Osteopenia (06/2005) Surgical History History of gastric bypass History of rectal surgery (1990) Hx of appendectomy (1957) Hx of cholecystectomy (1964) Family History Child Age: 54 Diabetes mellitus Child Age: 49 Diabetes mellitus Sister Age: 68 Diabetes mellitus Sister Age: 66 Diabetes mellitus Sister Age: 64 Diabetes mellitus Family/Other No problems noted. Family/Other No problems noted. Mother Parkinson disease Hypertension Grandfather Heart attack Grandmother Cancer Grandfather No problems noted. Grandmother No problems noted. Father Diabetes mellitus Hypertension Heart disease Social History Smoking Status: Never smoker alcohol intake: current substance use type: does not use Smoking Status: Never smoker alcohol intake frequency: 0-2 drinks per day Substance Use Type: does not use Exam Initial Vital Signs Initial Vital Signs: Vital Signs Temperature 97.7 F 03/19/21 21:17 Pulse Rate 84 03/19/21 21:17 Respiratory Rate 17 03/19/21 21:17 Blood Pressure 205/91 H 03/19/21 21:17 Pulse Oximetry 99 03/19/21 21:17 GENERAL: Alert well-appearing 75-year-old female CARDIOVASCULAR: peripheral pulses in tact, cap refill <2 sec RESPIRATORY: No respiratory distress, speaks in full sentences without difficulty EXTREMITIES: Normal range of motion, no clubbing or edema. Neurovascularly intact Right upper extremity full flexion extension and is supination pronation no significant swelling or erythema distal radial pulse intact tender on the medial epicondyle. NEUROLOGICAL: Cranial nerves II through XII grossly intact. Normal gait and speech. SKIN: Warm, dry, no petechiae, no rashes or lesions. Course Orders Ordered: ED Orders 03/19/21 21:43 XR elbow RT min 3V Stat Discontinued Medications Acetaminophen (Acetaminophen 325 Mg Tablet) 650 mg PO NOW ONE Stop: 03/19/21 21:46 Last Admin: 03/19/21 21:57 Dose: 650 mg Documented by: TREVIN Vital Signs Vital signs: Vital Signs - 8 hr 03/19/21 21:17 Temperature 97.7 F Pulse Rate 84 Respiratory Rate 17 Blood Pressure 205/91 H Pulse Oximetry 99 MDM - Extremity (Nontraumatic) Imaging Data Extremity x-ray #1: Radiologist's Impression: PROCEDURE:? XR ELBOW RT MIN 3V ? INDICATIONS:? pain, no injury ? TECHNIQUE:? 3 views of the elbow were acquired.? ? COMPARISON:? None. ? FINDINGS:? ? Bones:? No fractures or dislocations.? No suspicious bony lesions.? ? Soft tissues:? No elbow joint effusion.? No suspicious soft tissue calcifications.? ? ? IMPRESSION:? No fracture or dislocation.? If clinical symptoms persist or clinical suspicion for pathology is high, a repeat examination in 7-10 days, or advanced imaging such as CT or MRI is suggested for further evaluation. ? ? Dictated by: Rogelio Bruno M.D. on 03/19/2021 at 22:23 ? ? MDM Narrative Medical decision making narrative: Patient really is no sign of infection I see no erythema or fluctuation. She has full range of motion x-ray is negative. Possible sprain. Recommend monitoring and returning as needed Discharge Plan Departure Patient Disposition: Home Clinical Impression: Sprain of elbow, right Instructions: Elbow Sprain Activity Restrictions/Additional Instructions: *You have been diagnosed with right elbow sprain *What to do: At this time no injury. No infection identified. Recommend ice or heat whichever makes it feels better. Elevate and monitor. *Continue to take medications as directed Tylenol 650 mg every 4-6 hours if needed for [id number] pain *Follow up with your primary care provider in 2-3 days *Return to ER if you should have increasing pain swelling numbness or tingling any new, worsening or concerning symptoms Prescriptions: No Action lisinopril 40 mg tablet 20 mg PO DAILY 0RF Referrals: Dameon Barnett DO [Primary Care Provider] -
--- NOTE | 2021-03-19 21:43 | DI.RAD.S_ITS ---
PROCEDURE: XR ELBOW RT MIN 3V INDICATIONS: pain, no injury TECHNIQUE: 3 views of the elbow were acquired. COMPARISON: None. FINDINGS: Bones: No fractures or dislocations. No suspicious bony lesions. Soft tissues: No elbow joint effusion. No suspicious soft tissue calcifications. IMPRESSION: No fracture or dislocation. If clinical symptoms persist or clinical suspicion for pathology is high, a repeat examination in 7-10 days, or advanced imaging such as CT or MRI is suggested for further evaluation. Dictated by: Rogelio Bruno M.D. on 03/19/2021 at 22:23 Approved by: Rogelio Bruno M.D. on 03/19/2021 at 22:24
[2021-03-19] MEDS: ACETAMINOPHEN 325 MG TABLET 650 MG PO (21:57)
== END 2021-03-19 22:30 | disposition home or self-care (01) ==
PROVIDERS: Emergency Provider Emergency Medicine; PCP Family Medicine
DX: S53.401A Unspecified sprain of right elbow, initial encounter (principal); Z88.5 Allergy status to narcotic agent; X58.XXXA Exposure to other specified factors, initial encounter
CPT/HCPCS: 73080; 99283

== ENCOUNTER 2021-10-09 21:04 | Emergency (ER) | payer MEDICARE, SELFPAY ==
[2021-10-09 21:31] VITALS: BP 135/65; PULSE 79; RESP 16; TEMP 37.2; O2SAT 100
--- NOTE | 2021-10-09 21:35 | DI.RAD.S_ITS ---
PROCEDURE: XR ANKLE RT MIN 3V INDICATIONS: fall with swelling and pain to ankle. TECHNIQUE: 3 views of the ankle were acquired. COMPARISON: [facility], , ANKLE 3 VIEWS LEFT, 07/01/2017, 13:37. FINDINGS: Bones: No fractures or dislocations. Ankle mortise is normally aligned. There is diffuse osteopenia. No suspicious bony lesions. There are small plantar and posterior calcaneal enthesophytes. Soft tissues: No tibiotalar joint effusion. Achilles tendon appears normal. There are scattered vascular calcifications. IMPRESSION: 1. No fracture or dislocation. Dictated by: Adam Biggs M.D. on 10/09/2021 at 22:50 Approved by: Adam Biggs M.D. on 10/09/2021 at 22:50
--- NOTE | 2021-10-09 21:36 | DI.RAD.S_ITS ---
PROCEDURE: XR FOOT RT MIN 3V INDICATIONS: fall with swelling and pain to ankle. TECHNIQUE: 3 views of the foot were acquired. COMPARISON: [facility], CR, XR ANKLE RT MIN 3V, 10/09/2021, 21:26. [facility], CR, FOOT 3V LEFT, 07/01/2017, 13:37. FINDINGS: Bones: No fractures or dislocations. There is diffuse osteopenia. There is minimal midfoot degeneration. No suspicious bony lesions. Soft tissues: No tibiotalar joint effusion. Achilles tendon appears normal. IMPRESSION: 1. No definite fracture or dislocation. 2. Diffuse osteopenia. Dictated by: Adam Biggs M.D. on 10/09/2021 at 22:48 Approved by: Adam Biggs M.D. on 10/09/2021 at 22:49
--- NOTE | 2021-10-10 02:29 | ED_ITS ---
HPI - Extremity Injury (Lower) General Chief Complaint: Extremity Injury, Lower Stated Complaint: Right ankle injury Time Seen by Provider: 10/10/21 02:29 Source: patient Mode of arrival: Ambulatory History of Present Illness HPI Narrative: 76-year-old woman with a history of hypertension fecal incontinence with a bowel stimulator in place presents after [place]umbling [place] and twisting her right ankle. She did not specifically fall and did not sustain any additional injuries. She notes no numbness or tingling into that foot. She recently has not had any fevers, cough, chills, palpitations, chest pain, increasing lower extremity edema. She has had no change to her usual GI discomfort and diarrhea. Related Data Home Medications Medication Instructions Recorded Confirmed lisinopril 10 mg tablet 10 mg PO DAILY 10/09/21 10/09/21 loperamide 2 mg capsule 4 mg PO BID 10/09/21 10/09/21 Allergies Allergy/AdvReac Type Severity Reaction Status Date / Time adhesive tape Allergy Unknown Verified 03/19/21 21:21 codeine [CODEINE] Allergy Unknown Verified 03/19/21 21:21 Penicillins [PENICILLINS] Allergy Unknown Verified 03/19/21 21:21 Sulfa (Sulfonamide Allergy Unknown Verified 03/19/21 21:21 Antibiotics) [SULFA (SULFONAMIDE ANTIBIOTICS)] Review of Systems Review of Systems Narrative: Remainder of complete review of systems is otherwise unremarkable except for that included in the HPI. Patient History Medical History (Updated 10/10/21 @ 02:41 by Milagros Salomon MD) Chickenpox (5) Colon polyps (1989) Fecal incontinence (2015) Fractures (1960) Generalized headaches (Unknown) Hypertension (2004) Measles (1960) Osteopenia (06/2005) Surgical History History of gastric bypass History of rectal surgery (1990) Hx of appendectomy (1957) Hx of cholecystectomy (1964) Family History Child Age: 55 Diabetes mellitus Child Age: 50 Diabetes mellitus Sister Age: 69 Diabetes mellitus Sister Age: 67 Diabetes mellitus Sister Age: 65 Diabetes mellitus Family/Other No problems noted. Family/Other No problems noted. Mother Parkinson disease Hypertension Grandfather Heart attack Grandmother Cancer Grandfather No problems noted. Grandmother No problems noted. Father Diabetes mellitus Hypertension Heart disease Social History Smoking Status: Never smoker alcohol intake: current substance use type: does not use Smoking Status: Never smoker alcohol intake frequency: a few times a week Substance Use Type: does not use Exam Initial Vital Signs Initial Vital Signs: Vital Signs Temperature 98.9 F 10/09/21 21:31 Pulse Rate 79 10/09/21 21:31 Respiratory Rate 16 10/09/21 21:31 Blood Pressure 135/65 10/09/21 21:31 Pulse Oximetry 100 10/09/21 21:31 Oxygen Delivery Method 10/09/21 21:31 General: Alert appropriate in no acute distress Respiratory: Able to speak in full sentences, no obvious respiratory distress Skin: No obvious rashes, warm and dry Neurologic: Grossly intact no obvious asymmetries or abnormalities Psych: appropriate insight and affect, cooperative Extremity: Right ankle is moderately swollen long the lateral malleolus. She also has some tenderness along the calcaneus over the plantar surface. No ab rasions, ecchymosis beginning the posterior portion of the lateral malleolus and down toward the heel. Procedures Orthopedic Splinting/Casting Right ankle sprain: Time of procedure: 02:44 Side: right Lower Extremity Injury Location: ankle Lower Extremity Immobilizer: AirCast Post splinting neuro exam: intact Post splinting vascular exam: intact Placed by: Provider Course Orders Ordered: ED Orders 10/09/21 21:35 XR ankle RT min 3V Stat 10/09/21 21:36 XR foot RT min 3V Stat Vital Signs Vital signs: Vital Signs - 8 hr 10/09/21 21:31 Temperature 98.9 F Pulse Rate 79 Respiratory Rate 16 Blood Pressure 135/65 Pulse Oximetry 100 Oxygen Delivery Method Room Air MDM - Extremity Injury (Lower) Imaging Data Ankle and foot xray: Radiologist's Impression: FINDINGS:? ? Bones:? No fractures or dislocations.? Ankle mortise is normally aligned.? There is diffuse osteopenia.? No suspicious bony lesions.? There are small plantar and posterior calcaneal enthesophytes. ? Soft tissues:? No tibiotalar joint effusion.? Achilles tendon appears normal.? There are scattered vascular calcifications. ? ? IMPRESSION:? ? 1. No fracture or dislocation.? Dictated by: Adam Biggs M.D. on 10/09/2021 at 22:50 ? ? FINDINGS:? ? Bones:? No fractures or dislocations.? Ankle mortise is normally aligned.? There is diffuse osteopenia.? No suspicious bony lesions.? There are small plantar and posterior calcaneal enthesophytes. ? Soft tissues:? No tibiotalar joint effusion.? Achilles tendon appears normal.? There are scattered vascular calcifications. ? ? IMPRESSION:? ? 1. No fracture or dislocation.? Dictated by: Adam Biggs M.D. on 10/09/2021 at 22:50 ? ? MDM Narrative Medical decision making narrative: 76-year-old woman with of mechanical stumble not quite a full fall but significant ankle twisting injury causing acute ankle sprain. Consistent with clinical exam. X-rays do not show acute fracture. She is placed in an air splint and given a walker for stability. Recommended pain control suggestions questions are answered she is safe for home discharge Discharge Plan Departure Patient Disposition: Home Clinical Impression: Left ankle sprain Instructions: DI for Ankle Sprain Activity Restrictions/Additional Instructions: Thank you for coming in today The x-rays of your foot and ankle do not show any acute broken bones. Your exam certainly suggests quite a bit of swelling and a significant ankle sprain. I have given you an air splint to used to support the ankle. It is okay to walk on it as you are able to tolerate. You are not going to make the injury worse. I have given you a walker to help with stability to prevent any future falls Using 400 mg of ibuprofen (2 ibxt-gvq-uznkhlo pills) and 1 Tylenol every 6 hours can be very helpful in controlling pain.. Icing the swollen area and keeping the foot elevated will also be prove helpful If you find that you are getting worse or develop any new symptoms, please feel free to return to the emergency department for further evaluation. Prescriptions: No Action loperamide 2 mg Capsule 4 mg PO BID lisinopril 10 mg Tablet 10 mg PO DAILY Referrals: Dameon Barnett DO [Primary Care Provider] -
[2021-10-10] MEDS: ACETAMINOPHEN 325 MG TABLET PO (02:45)
[2021-10-10] MEDS: IBUPROFEN 400 MG TABLET PO (02:45)
[2021-10-10 02:51] VITALS: BP 137/82; RESP 18
== END 2021-10-10 02:52 | disposition home or self-care (01) ==
PROVIDERS: Emergency Provider Emergency Medicine; PCP Family Medicine
DX: S93.402A Sprain of unspecified ligament of left ankle, initial encounter (principal); X50.1XXA Overexertion from prolonged static or awkward postures, initial encounter
CPT/HCPCS: 73610; 73630; 99283

== ENCOUNTER → 2021-11-18 07:02 | Outpatient (CLI) | payer MEDICARE, SELFPAY ==
[2021-11-18 08:23] LABS: Add Manual Diff / Slide Review NO; Basophils Absolute Auto 100 /uL (0-100); Basophils Percent Auto 2.6 % (0-2); Eosinophils Absolute Auto 100 /uL (0-450); Eosinophils Percent Auto 1.6 % (2-4); Hematocrit 33.7 % (36-46); Hemoglobin 11.5 g/dL (12.0-16.0); Lymphocytes Absolute Auto 1000 /uL (1100-4500); Lymphocytes Percent Auto 23.3 % (25-40); Mean Corpuscular HGB Conc 34.1 % (30-36); Mean Corpuscular Hemoglobin 31.4 PG (26-34); Mean Corpuscular Volume 92.1 fL (80-100); Monocytes Absolute Auto 500 /uL (0-900); Monocytes Percent Auto 11.2 % (3-14); Neutrophils Absolute Auto 2700 /uL (1500-7000); Neutrophils Percent Auto 61.3 % (50-75); Platelet Count 174 X10^3/uL (150-400); Red Blood Cell Count 3.66 X10^6/uL (4.0-5.2); White Blood Cell Count 4.4 X10^3/uL (4.5-11.0)
[2021-11-18 08:37] LABS: Alanine Aminotransferase 26 IU/L (<35); Albumin 3.7 g/dL (3.5-5.0); Albumin Globulin Ratio 1.4 (1.0-2.8); Alkaline Phosphatase 163 U/L (38-126); Aspartate Aminotransferase 26 IU/L (14-36); BUN Creatinine Ratio 17.5 (6-22); Bilirubin Total 0.7 mg/dL (0.2-1.3); Blood Urea Nitrogen 11 mg/dL (7-17); Calcium 8.7 mg/dL (8.4-10.2); Carbon Dioxide 22 mmol/L (22-32); Chloride 112 mmol/L (98-107); Cholesterol 95 mg/dL (140-199); Estimated Glomerular Filt Rate > 60 mL/min (>60); Globulin 2.6 g/dL (1.7-4.1); Glucose 85 mg/dL (80-110); HDL Cholesterol 32 mg/dL (40-60); HEMOLYSIS < 15 (0-50); LDL Cholesterol Calculated 49 mg/dL (<100); Potassium 3.6 mmol/L (3.4-5.1); Sodium 141 mmol/L (137-145); Total Protein 6.3 g/dL (6.3-8.2); Triglycerides 71 mg/dL (35-150)
[2021-11-18 09:24] LABS: Thyroid Stimulating Hormone 2.83 uIU/mL (0.47-4.68)
== END ==
PROVIDERS: PCP Family Medicine; Referring Provider Family Medicine; Visit Provider Family Medicine
DX: I10 Essential (primary) hypertension (principal); R00.2 Palpitations; R07.89 Other chest pain; R60.0 Localized edema
CPT/HCPCS: 36415; 80053; 80061; 84439; 84443; 84481; 85025

== ENCOUNTER → 2021-11-18 07:38 | Outpatient (CLI) | payer MEDICARE, SELFPAY ==
--- NOTE | 2021-12-04 16:39 | PM.CARDMON.1 ---
Piece Work Inspector Report Referral & Results Date Patient Seen: 11/18/21 Requesting provider: Yunior Barnett Indication: Palpitations Duration of monitoring (days): 8 Diary information: There were 9 patient triggered events and 4 patient diary entries Patient triggered events were variably associated with (within 45 seconds) sinus rhythm, PACs and PVCs Patient diary events were variably associated with (within 45 seconds) sinus rhythm and PACs Data: Minimum heart rate identified was 49 beats per minute at 06:19 on 11/21/2021 Maximum sinus heart rate was 121 beats per minute at 18:56 on 11/22/2021 Maximum overall heart rate was 167 beats per minute at 17:17 on 11/23/2021 during a run of SVT Approximately 15.3% of identified beats were supraventricular ectopic in origin which would classify them as frequent including occasional couplets Less than 1% of identified beats were ventricular ectopic in origin which would classify them as rare There were 172 runs of SVT the fastest being the 4 beat run as above the longest lasting 22.4 seconds There were no pauses or episodes of atrial fibrillation identified on this study Impression: 7+ day satellite project site monitor demonstrating frequent PACs which is probably source of patient's sense of palpitations based on patient events and overall frequency of events Also patient with very rare, brief runs of SVT Clinical correlation suggested
== END ==
PROVIDERS: PCP Family Medicine; Referring Provider Family Medicine; Visit Provider Family Medicine
DX: R00.2 Palpitations (principal); I10 Essential (primary) hypertension; R07.89 Other chest pain; R60.0 Localized edema
CPT/HCPCS: 36415; 80053; 80061; 84439; 84443; 84481; 85025; 93242; 93248

== ENCOUNTER → 2021-12-02 07:40 | Outpatient (CLI) | payer MEDICARE, SELFPAY ==
[2021-12-02 08:50] LABS: COVID19 -Nasal RAPID Negative (Negative)
--- NOTE | 2021-12-02 09:22 | PM.TREADMILL ---
Cardiac Stress Test Report Referral & Results Date Patient Seen: 12/02/21 Time Patient Seen: 09:00 Requesting provider: Yunior Barnett Indication: Chest discomfort Rest ECG: Sinus rhythm with frequent PACs. Procedure Note: Today, following both written and verbal informed consent, the patient was exercised according to a standard Horace protocol. The patient went for a total of 4 minutes 15 seconds achieving a maximum heart rate of 146 maximum systolic blood pressure of 152. This is approximately 7.0 METs. Exercise was terminated at this point because of fatigue, targets meant. Patient was also given Cardiolite through a previously started Hep-Lock IV by the dispensary technician approximately 1 minute prior to the cessation of exercise. Normal hemodynamic response to exercise. Frequent PVCs, including couplets, at peak exercise only. Rhythm abnormalities resolved with rest. No ST changes. Mild exercise impairment (FA I +10% on active scale). Impression: Successful Cardiolite protocol. Perfusion imaging pending. Exercise-induced PVCs. Please note: Actual ECG tracings can be found in the PACS system.
--- NOTE | 2021-12-03 19:07 | DI.NM.S_ITS ---
DATE OF SERVICE: PROCEDURE: Exercise perfusion study. INDICATION: Chest pressure, palpitation. RADIOPHARMACEUTICAL: 24.7 mCi technetium-99m Myoview IV was injected at stress, and 27.0 mCi technetium-99m Myoview IV was injected at rest. CARDIAC STRESS: The patient underwent exercise perfusion study under the supervision of an attending staff. The patient walked on Horace protocol for 4 minutes and 15 seconds, achieved 102 percent of target heart rate. Baseline blood pressure 132/80 mmHg and peak blood pressure 152/92 mmHg. She felt fatigued. Hence, stress test was discontinued. She met target heart rate. Baseline rhythm was sinus and some intermittent PACs as well as PVCs. Ventricular couplet was seen. During exercise at peak exercise, PVCs seen with ventricular couplet. In recovery, the patient had frequent ventricular couplets without any ventricular tachycardia. No obvious atrial fibrillation. There were some nonspecific ST-T changes without any convincing ischemic changes. RAUL positive 10 percent. The patient achieved 7 METs of workload. RAW DATA: Raw data there is a significantly increased subdiaphragmatic shadow and gut activity affecting apex and inferior border of the heart. GATED STUDY: Stress LV ejection fraction 70 percent without any obvious wall motion abnormalities. No transient ischemic dilatation. TID ratio 0.92, which is within normal limits. Lung/heart ratio 0.27, which is within normal limits. Resting end-diastolic volume 68 mL. MYOCARDIAL PERFUSION: Stress supine, resting supine, and stress prone images were compared to each other. Resting supine images and stress prone images revealed small size, mildly decreased perfusion of apex. However, during stress supine images, I do not see any significant perfusion defect. CONCLUSION: I will call this study likely a normal myocardial perfusion study. Stress supine images did not reveal any convincing ischemia or infarction. There is subdiaphragmatic activity and hot spot near the inferior border of the heart and the apex. Preserved left ventricular function without any wall motion abnormalities. No transient ischemic dilatation. Diminished exercise tolerance. Overall low-risk myocardial perfusion scan. Otiliagerardrebeca Kevinpalma Charline - MAITE/bandar/[facility] doc#: [id number]/job#: [id number] dd: 12/03/2021 17:35:00 dt: 12/03/2021 18:45:00 DICTATING MD/COPIES TO: Liliana Calderon MD COPIES MNE: MAGNUS;
== END ==
PROVIDERS: PCP Family Medicine; Referring Provider Family Medicine; Visit Provider Family Medicine
DX: I49.1 Atrial premature depolarization (principal); R07.89 Other chest pain; R00.2 Palpitations; Z20.822 Contact with and (suspected) exposure to COVID-19
CPT/HCPCS: 78452; 87635; 93016; 93017; 93018; A9502

== ENCOUNTER 2022-08-11 21:48 | Emergency (ER) | payer MEDICARE, SELFPAY ==
[2022-08-11 22:37] VITALS: BP 140/70; PULSE 79; RESP 18; TEMP 36.6; O2SAT 98; BMI 20.8
--- NOTE | 2022-08-11 22:44 | DI.RAD.S_ITS ---
PROCEDURE: XR KNEE RT 3V INDICATIONS: pain to leg, no known injury TECHNIQUE: 3 views of the knee were acquired. COMPARISON: [facility], , KNEE 3V LEFT, 09/12/2007, 11:43. FINDINGS: Bones: No fractures or dislocations. Mild joint space narrowing demonstrated within the medial compartment. No suspicious bony lesions. Soft tissues: There is a moderate joint effusion. There is chondrocalcinosis. IMPRESSION: 1. 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 2. Moderate joint effusion. Dictated by: Adam Biggs M.D. on 08/12/2022 at 0:17 Approved by: Adam Biggs M.D. on 08/12/2022 at 0:18
--- NOTE | 2022-08-11 22:44 | DI.RAD.S_ITS ---
PROCEDURE: XR ANKLE RT MIN 3V INDICATIONS: pain to leg, no known injury TECHNIQUE: 3 views of the ankle were acquired. COMPARISON: [facility], CR, XR ANKLE RT MIN 3V, 10/09/2021, 21:26. FINDINGS: Bones: No fractures or dislocations. Ankle mortise is normally aligned. No suspicious bony lesions. Soft tissues: No tibiotalar joint effusion. Achilles tendon appears normal. IMPRESSION: 1. No acute bony abnormality. Dictated by: Adam Biggs M.D. on 08/12/2022 at 0:16 Approved by: Adam Biggs M.D. on 08/12/2022 at 0:17
[2022-08-12 01:29] VITALS: BP 124/61; PULSE 70; RESP 18; O2SAT 99
[2022-08-12 02:41] VITALS: PULSE 69; O2SAT 97
[2022-08-12 03:00] VITALS: BP 124/61; PULSE 76; O2SAT 98
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
== END 2022-08-12 03:40 | disposition home or self-care (01) ==
PROVIDERS: Emergency Provider Emergency Medicine; PCP Family Medicine
DX: S93.401A Sprain of unspecified ligament of right ankle, initial encounter (principal); M25.461 Effusion, right knee; X58.XXXA Exposure to other specified factors, initial encounter
CPT/HCPCS: 73562; 73610; 99283

== ENCOUNTER → 2022-12-30 09:02 | Outpatient (CLI) | payer MEDICARE, SELFPAY ==
[2022-12-30 09:50] LABS: Alanine Aminotransferase 43 IU/L (<35); Albumin 4.1 g/dL (3.5-5.0); Albumin Globulin Ratio 1.6 (1.0-2.8); Alkaline Phosphatase 166 U/L (38-126); Aspartate Aminotransferase 41 IU/L (14-36); BUN Creatinine Ratio 35.6 (6-22); Bilirubin Total 0.9 mg/dL (0.2-1.3); Blood Urea Nitrogen 21 mg/dL (7-17); Calcium 9.3 mg/dL (8.4-10.2); Carbon Dioxide 18 mmol/L (22-32); Chloride 112 mmol/L (98-107); Cholesterol 102 mg/dL (140-199); Estimated Glomerular Filt Rate > 60 mL/min (>60); Globulin 2.5 g/dL (1.7-4.1); Glucose 94 mg/dL (80-110); HDL Cholesterol 35 mg/dL (40-60); HEMOLYSIS < 15 (0-50); LDL Cholesterol Calculated 47 mg/dL (<100); Potassium 3.4 mmol/L (3.4-5.1); Sodium 141 mmol/L (137-145); Total Protein 6.6 g/dL (6.3-8.2); Triglycerides 99 mg/dL (35-150)
[2022-12-30 09:52] LABS: Add Manual Diff / Slide Review NO; Basophils Absolute Auto 0 /uL (0-100); Basophils Percent Auto 0.3 % (0-2); Eosinophils Absolute Auto 100 /uL (0-450); Eosinophils Percent Auto 1.2 % (2-4); Hematocrit 36.5 % (36-46); Hemoglobin 12.4 g/dL (12.0-16.0); Lymphocytes Absolute Auto 1400 /uL (1100-4500); Lymphocytes Percent Auto 29.5 % (25-40); Mean Corpuscular Volume 94.2 fL (80-100); Monocytes Absolute Auto 500 /uL (0-900); Monocytes Percent Auto 10.5 % (3-14); Neutrophils Absolute Auto 2700 /uL (1500-7000); Neutrophils Percent Auto 58.5 % (50-75); Platelet Count 226 X10^3/uL (150-400); Red Blood Cell Count 3.88 X10^6/uL (4.0-5.2); Red Cell Distribution Width 13.4 % (11.6-14.8); White Blood Cell Count 4.7 X10^3/uL (4.5-11.0)
== END ==
PROVIDERS: PCP Family Medicine; Referring Provider Family Medicine; Visit Provider Family Medicine
DX: I10 Essential (primary) hypertension (principal); R00.2 Palpitations
CPT/HCPCS: 36415; 80053; 80061; 85025

== ENCOUNTER → 2023-03-29 11:36 | Outpatient (CLI) | payer MEDICARE, SELFPAY ==
[2023-03-29 13:20] LABS: Alanine Aminotransferase 31 IU/L (<35); Albumin Globulin Ratio 1.6 (1.0-2.8); Alkaline Phosphatase 155 U/L (38-126); Aspartate Aminotransferase 37 IU/L (14-36); Bilirubin Total 0.8 mg/dL (0.2-1.3); Blood Urea Nitrogen 17 mg/dL (7-17); Calcium 9.6 mg/dL (8.4-10.2); Carbon Dioxide 21 mmol/L (22-32); Chloride 113 mmol/L (98-107); Estimated Glomerular Filt Rate > 60 mL/min (>60); Gamma Glutamyl Transpeptidase 31 U/L (12-43); Globulin 2.5 g/dL (1.7-4.1); Glucose 77 mg/dL (80-110); HEMOLYSIS < 15 (0-50); Potassium 4.1 mmol/L (3.4-5.1); Sodium 141 mmol/L (137-145); Total Protein 6.5 g/dL (6.3-8.2)
== END ==
PROVIDERS: PCP Family Medicine; Referring Provider Family Medicine; Visit Provider Family Medicine
DX: I10 Essential (primary) hypertension (principal)
CPT/HCPCS: 36415; 80053; 82977

== ENCOUNTER 2023-12-21 05:56 | Emergency (ER) | payer MEDICARE, SELFPAY ==
[2023-12-21 06:04] VITALS: BP 137/62; PULSE 66; RESP 16; TEMP 36.3; O2SAT 98; BMI 20.8
--- NOTE | 2023-12-21 06:08 | DI.RAD.S_ITS ---
PROCEDURE: XR WRIST RT 4V INDICATIONS: ATRAUMATIC R WRIST PAIN/SWELLING TECHNIQUE: Four views of the wrist were acquired. COMPARISON: None. 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 There is moderate diffuse joint space calcification most notably at the triangular fibrocartilage and radial carpal consistent with chondrocalcinosis commonly calcium pyrophosphate deposition. Bones: Moderate osteopenia No radiographic evidence of fractures or dislocations. IMPRESSION: Moderate degenerate changes. Moderate joint space calcification, chondrocalcinosis. No radiographic evidence of acute fracture. Preliminary report was provided by Kateryna Bojorquez MD December 21, 2023 at 6:37 a.m. Dictated by: Geoffrye Rodriguez M.D. on 12/21/2023 at 8:23 Approved by: Geoffrey Rodriguez M.D. on 12/21/2023 at 8:33
--- NOTE | 2023-12-21 06:09 | ED_ITS ---
HPI - Extremity Problem <Zena Johnson MD - Last Filed: 12/28/23 22:41> General Chief complaint: Extremity Problem,Nontraumatic Stated complaint: rt wrist swollen, in a lot of pain Time Seen by Provider: 12/21/23 05:57 Source: patient Mode of arrival: Ambulatory History of Present Illness HPI Narrative: 78-year-old female with history of atrial fibrillation status post ablation on flecainide and Eliquis presents by private vehicle from home for 1 day gradually worsening asymptomatic right wrist pain and swelling. Patient states that she took 1 of her 's allopurinol tablets last night thinking that it could possibly be gout, but the pain continued to worsen and she was here today for evaluation. Denies trauma or other injury. Denies known insect bite, laceration. Related Data Home Medications Medication Instructions Recorded Confirmed apixaban 5 mg tablet (Eliquis) 5 mg PO BID 12/30/22 03/23/23 dorzolamide 2 % eye drops drp EYE-BOTH 03/25/23 03/25/23 Previous Rx's Medication Instructions Recorded lisinopril 20 mg tablet 20 mg PO DAILY #30 tabs 12/20/22 hydrocodone 5 mg-acetaminophen 325 1 tab PO Q6H PRN pain #7 tabs 12/21/23 mg tablet prednisone 10 mg tablets in a dose See Rx Instructions PO .COMPLEX 12/21/23 pack #15 ea Allergies Allergy/AdvReac Type Severity Reaction Status Date / Time adhesive tape Allergy Unknown Verified 03/23/23 13:55 codeine [CODEINE] Allergy Unknown Verified 03/23/23 13:55 Penicillins [PENICILLINS] Allergy Unknown Verified 03/23/23 13:55 Sulfa (Sulfonamide Allergy Unknown Verified 03/23/23 13:55 Antibiotics) [SULFA (SULFONAMIDE ANTIBIOTICS)] Patient History <Zena Johnson MD - Last Filed: 12/28/23 22:41> Medical History Frequent PVCs PAC (premature atrial contraction) Chest pressure Lower extremity edema Heart palpitations Orthostatic hypertension Fractures (1960) Chickenpox (1954) Measles (1960) Generalized headaches (Unknown) Osteopenia (06/2005) Fecal incontinence (2015) Hypertension (2004) Colon polyps (1989) Surgical History Hx of cholecystectomy (1964) Hx of appendectomy (1957) History of rectal surgery (1990) History of gastric bypass Family History Child Age: 57 Diabetes mellitus Child Age: 52 Diabetes mellitus Sister Age: 71 Diabetes mellitus Sister Age: 69 Diabetes mellitus Sister Age: 67 Diabetes mellitus Family/Other No problems noted. Family/Other No problems noted. Mother Parkinson disease Hypertension Grandfather Heart attack Grandmother Cancer Grandfather No problems noted. Grandmother No problems noted. Father Diabetes mellitus Hypertension Heart disease Social History Smoking Status: Never smoker alcohol intake: current substance use type: does not use Smoking Status: Never smoker alcohol intake frequency: a few times a week Substance Use Type: does not use Exam <Zena Johnson MD - Last Filed: 12/28/23 22:41> Initial Vital Signs Initial Vital Signs: Vital Signs Temperature 97.3 F L 12/21/23 06:04 Pulse Rate 66 12/21/23 06:04 Respiratory Rate 16 12/21/23 06:04 Blood Pressure 137/62 12/21/23 06:04 Pulse Oximetry 98 12/21/23 06:04 Oxygen Delivery Method Room Air 12/21/23 06:04 Const: Awake, alert, no acute distress, nontoxic appearing MSK: Warmth and erythema dorsum right wrist, mild amount of swelling, full range of motion, 2+ radial pulses, sensation intact and equal bilaterally Skin: Warm, Dry, intact, no rashes Neuro: AO x3, CN II-XII grossly intact, moves all extremities <Zena Nieves DO - Last Filed: 12/21/23 08:52> Initial Vital Signs Initial Vital Signs: Vital Signs Temperature 97.3 F L 12/21/23 06:04 Pulse Rate 66 12/21/23 06:04 Respiratory Rate 16 12/21/23 06:04 Blood Pressure 137/62 12/21/23 06:04 Pulse Oximetry 98 12/21/23 06:04 Oxygen Delivery Method Room Air 12/21/23 06:04 Course <Zena Johnson MD - Last Filed: 12/28/23 22:41> Orders Ordered: Discontinued Medications Hydrocodone Bitart/Acetaminophen (Hydrocodone/Acet 5/325 Tablet) 1 tab PO NOW ONE Stop: 12/21/23 06:09 Last Admin: 12/21/23 06:13 Dose: 1 tab Documented By: ZITA Potassium Chloride (Potassium Chloride 20 Meq Tab) 40 meq PO NOW ONE Stop: 12/21/23 08:28 Last Admin: 12/21/23 08:44 Dose: 40 meq Documented By: BHARATI Prednisone (Prednisone 20 Mg Tablet) 60 mg PO NOW ONE Stop: 12/21/23 08:28 Last Admin: 12/21/23 08:44 Dose: 60 mg Documented By: BHARATI Vital Signs Vital signs: Vital Signs - 8 hr 12/21/23 06:04 12/21/23 08:38 12/21/23 08:38 Temperature 97.3 F L Pulse Rate 66 64 Respiratory Rate 16 Blood Pressure 137/62 107/53 L Pulse Oximetry 98 97 Oxygen Delivery Method Room Air <Zena Nieves DO - Last Filed: 12/21/23 08:52> Orders Ordered: Discontinued Medications Hydrocodone Bitart/Acetaminophen (Hydrocodone/Acet 5/325 Tablet) 1 tab PO NOW ONE Stop: 12/21/23 06:09 Last Admin: 12/21/23 06:13 Dose: 1 tab Documented By: ZITA Potassium Chloride (Potassium Chloride 20 Meq Tab) 40 meq PO NOW ONE Stop: 12/21/23 08:28 Last Admin: 12/21/23 08:44 Dose: 40 meq Documented By: BHARATI Prednisone (Prednisone 20 Mg Tablet) 60 mg PO NOW ONE Stop: 12/21/23 08:28 Last Admin: 12/21/23 08:44 Dose: 60 mg Documented By: BHARATI Vital Signs Vital signs: Vital Signs - 8 hr 12/21/23 06:04 12/21/23 08:38 12/21/23 08:38 Temperature 97.3 F L Pulse Rate 66 64 Respiratory Rate 16 Blood Pressure 137/62 107/53 L Pulse Oximetry 98 97 Oxygen Delivery Method Room Air MDM - Extremity (Nontraumatic) <Zena Johnson MD - Last Filed: 12/28/23 22:41> Lab Data 12/21/23 06:14 12/21/23 06:14 Labs: Lab Results 12/21/23 Range/Units 06:14 WBC 7.5 (4.5-11.0) X10^3/uL RBC 3.71 L (4.0-5.2) X10^6/uL Hgb 11.8 L (12.0-16.0) g/dL Hct 35.1 L (36-46) % MCV 94.6 (80-100) fL MCH 31.9 (26-34) PG MCHC 33.7 (30-36) % RDW 12.6 (11.6-14.8) % Plt Count 154 (150-400) X10^3/uL Neut % (Auto) 77.3 H (50-75) % Lymph % (Auto) 11.5 L (25-40) % [place] % (Auto) 9.9 (3-14) % Eos % (Auto) 0.9 L (2-4) % Baso % (Auto) 0.4 (0-2) % Neut # (Auto) 5800 (9080-0958) /uL Lymph # (Auto) 900 L (0303-7916) /uL [place] # (Auto) 700 (0-900) /uL Eos # (Auto) 100 (0-450) /uL Baso # (Auto) 0 (0-100) /uL ESR 77 H (0-20) MM/HR Sodium 137 (137-145) mmol/L Potassium 3.2 L (3.4-5.1) mmol/L Chloride 109 H (98-107) mmol/L Carbon Dioxide 21 L (22-32) mmol/L BUN 15 (7-17) mg/dL Creatinine 0.55 (0.52-1.04) mg/dL Estimated GFR > 60 (>60) mL/min BUN/Creatinine Ratio 27.3 H (6-22) Glucose 128 H (80-110) mg/dL Uric Acid 4.3 (2.5-6.2) mg/dL Calcium 9.1 (8.4-10.2) mg/dL Total Bilirubin 0.7 (0.2-1.3) mg/dL AST 40 H (14-36) IU/L ALT 34 (<35) IU/L Alkaline Phosphatase 135 H (38-126) U/L C-Reactive Protein < 0.5 (<1.0) mg/dL Total Protein 6.3 (6.3-8.2) g/dL Albumin 3.9 (3.5-5.0) g/dL Globulin 2.4 (1.7-4.1) g/dL Albumin/Globulin Ratio 1.6 (1.0-2.8) MDM Narrative Medical decision making narrative: One day of atraumatic right wrist pain. There is a minimal amount of swelling of the right wrist with generalized tenderness. No obvious bite wound or laceration to suggest cellulitis. Suspect some sort of inflammatory arthropathy. Blood work, inflammatory markers, uric acid, x-ray ordered for assessment. Ruskin ordered for pain. <Zena Nieves, DO - Last Filed: 12/21/23 08:52> Lab Data Labs: Lab Results 12/21/23 Range/Units 06:14 WBC 7.5 (4.5-11.0) X10^3/uL RBC 3.71 L (4.0-5.2) X10^6/uL Hgb 11.8 L (12.0-16.0) g/dL Hct 35.1 L (36-46) % MCV 94.6 (80-100) fL MCH 31.9 (26-34) PG MCHC 33.7 (30-36) % RDW 12.6 (11.6-14.8) % Plt Count 154 (150-400) X10^3/uL Neut % (Auto) 77.3 H (50-75) % Lymph % (Auto) 11.5 L (25-40) % [place] % (Auto) 9.9 (3-14) % Eos % (Auto) 0.9 L (2-4) % Baso % (Auto) 0.4 (0-2) % Neut # (Auto) 5800 (5484-3583) /uL Lymph # (Auto) 900 L (9880-2576) /uL [place] # (Auto) 700 (0-900) /uL Eos # (Auto) 100 (0-450) /uL Baso # (Auto) 0 (0-100) /uL ESR 77 H (0-20) MM/HR Sodium 137 (137-145) mmol/L Potassium 3.2 L (3.4-5.1) mmol/L Chloride 109 H (98-107) mmol/L Carbon Dioxide 21 L (22-32) mmol/L BUN 15 (7-17) mg/dL Creatinine 0.55 (0.52-1.04) mg/dL Estimated GFR > 60 (>60) mL/min BUN/Creatinine Ratio 27.3 H (6-22) Glucose 128 H (80-110) mg/dL Uric Acid 4.3 (2.5-6.2) mg/dL Calcium 9.1 (8.4-10.2) mg/dL Total Bilirubin 0.7 (0.2-1.3) mg/dL AST 40 H (14-36) IU/L ALT 34 (<35) IU/L Alkaline Phosphatase 135 H (38-126) U/L C-Reactive Protein < 0.5 (<1.0) mg/dL Total Protein 6.3 (6.3-8.2) g/dL Albumin 3.9 (3.5-5.0) g/dL Globulin 2.4 (1.7-4.1) g/dL Albumin/Globulin Ratio 1.6 (1.0-2.8) MDM Narrative Medical decision making narrative: One day of atraumatic right wrist pain. There is a minimal amount of swelling of the right wrist with generalized tenderness. No obvious bite wound or laceration to suggest cellulitis. Suspect some sort of inflammatory arthropathy. Blood work, inflammatory markers, uric acid, x-ray ordered for assessment. [place] ordered for pain. Patient signed out to myself by Dr. Johnson. ESR is still pending all other labs and imaging are resulted. X-ray shows no definitive fracture, chondrocalcinosis, degenerative changes of the STT joint with [id number] degenerative changes of the remainder joint spaces. White count of 7.5 hemoglobin 11.8 platelets of 154 predominance of neutrophils. Chemistry shows potassium of 3.2 chloride of 109 CO2 of 21 BUN 15 creatinine 0.55 glucose of 128 uric acid 4.3, CRP is less than 0.5. AST is elevated at 40 flex to be consistently mildly elevated along with a alk-phos that is consistently mildly elevated at 135. ESR is elevated at 77. Exam of the joint, patient is [id number] tender over the wrist joint. Does have range of motion but is uncomfortable with movement. 2+ radial pulse cap refill less than 2 seconds in all 5 fingers. There is some slight erythema over the drain particularly the ulnar aspect. No tracking or spreading, some mild warmth. Reviewed findings with patient today. Likely reactive arthropathy been for short course of steroids. Patient is not has a history of gout although she did take a dose of allopurinol that belowngs to her last night. Suspicion for septic joint in his low. Discussed with patient we will give a short course of steroids, short course of pain medication with return precautions. We will replace patient's potassium. She notes that she had some replacement by her cardiology team recently but is no longer taking it. Asked her to follow up to make sure it has not continuing to be quite low. Patient feels comfortable with this plan. All questions answered. Discharge Plan Departure Patient Disposition: Home Clinical Impression: Pain in right wrist Instructions: DI for Wrist Pain Activity Restrictions/Additional Instructions: I suspect you are having a little bit of reactive inflammatory arthritis. Please follow up with your physician if it has not improving over the next several days. Your potassium was slightly low today you received a dose of oral potassium here but I would follow up with your physician to make sure that that has not persistently low. Take prednisone once daily until gone. You can take Tylenol to a 1000 mg every 6 hours as needed if inadequate for pain you can take [place] 1-2 tablets every 6 hours instead of Tylenol but not at the same time. These both have Tylenol or acetaminophen in them so do not take more than 4000 mg in 24 hours. This medication can make you sleepy do not drive, perform hazardous activities or make any major decisions while taking it. This medication will make you constipated please take a stool softener once to twice daily until stools are soft and regular. Prescription sent to [facility] in [place]. Please return for fevers, rapidly worsening redness, swelling, increasing pain numbness or tingling or other new or concerning changes. Prescriptions: New prednisone 10 mg tablets,dose pack See Rx Instructions .ROUTE .COMPLEX Qty: 15 0RF Rx Instructions: Take 5 tabs p.o. x1 day, then 4 tablets p.o. x1 day, then 3 tabs p.o. x1 day, then 2 tabs p.o. x1 day, then 1 tab p.o. x1 day hydrocodone-acetaminophen 5-325 mg tablet 1 tab PO Q6H PRN (Reason: pain) Qty: 7 0RF No Action lisinopril 20 mg tablet 20 mg PO DAILY Qty: 30 1RF Eliquis 5 mg tablet 5 mg PO BID dorzolamide 2 % drops EYE-BOTH Referrals: Yunior Barnett DO [Primary Care Provider] - Stand Alone Forms: Patient Portal/API
[2023-12-21] MEDS: HYDROCODONE/ACET 5/325 TABLET 1 TAB PO (06:13)
[2023-12-21 06:23] LABS: Add Manual Diff / Slide Review NO; Basophils Absolute Auto 0 /uL (0-100); Basophils Percent Auto 0.4 % (0-2); Eosinophils Absolute Auto 100 /uL (0-450); Eosinophils Percent Auto 0.9 % (2-4); Hematocrit 35.1 % (36-46); Hemoglobin 11.8 g/dL (12.0-16.0); Lymphocytes Absolute Auto 900 /uL (1100-4500); Lymphocytes Percent Auto 11.5 % (25-40); Mean Corpuscular HGB Conc 33.7 % (30-36); Mean Corpuscular Hemoglobin 31.9 PG (26-34); Mean Corpuscular Volume 94.6 fL (80-100); Monocytes Absolute Auto 700 /uL (0-900); Monocytes Percent Auto 9.9 % (3-14); Neutrophils Absolute Auto 5800 /uL (1500-7000); Neutrophils Percent Auto 77.3 % (50-75); Platelet Count 154 X10^3/uL (150-400); Red Blood Cell Count 3.71 X10^6/uL (4.0-5.2); Red Cell Distribution Width 12.6 % (11.6-14.8); White Blood Cell Count 7.5 X10^3/uL (4.5-11.0)
[2023-12-21 06:44] LABS: Alanine Aminotransferase 34 IU/L (<35); Albumin 3.9 g/dL (3.5-5.0); Albumin Globulin Ratio 1.6 (1.0-2.8); Alkaline Phosphatase 135 U/L (38-126); Aspartate Aminotransferase 40 IU/L (14-36); BUN Creatinine Ratio 27.3 (6-22); Bilirubin Total 0.7 mg/dL (0.2-1.3); Blood Urea Nitrogen 15 mg/dL (7-17); C-Reactive Protein Quant < 0.5 mg/dL (<1.0); Calcium 9.1 mg/dL (8.4-10.2); Carbon Dioxide 21 mmol/L (22-32); Chloride 109 mmol/L (98-107); Estimated Glomerular Filt Rate > 60 mL/min (>60); Globulin 2.4 g/dL (1.7-4.1); Glucose 128 mg/dL (80-110); HEMOLYSIS < 15 (0-50); Potassium 3.2 mmol/L (3.4-5.1); Sodium 137 mmol/L (137-145); Total Protein 6.3 g/dL (6.3-8.2); Uric Acid 4.3 mg/dL (2.5-6.2)
[2023-12-21 08:13] LABS: Erythrocyte Sedimentation Rate 77 MM/HR (0-20)
[2023-12-21 08:38] VITALS: BP 107/53; PULSE 64; O2SAT 97
[2023-12-21] MEDS: POTASSIUM CHLORIDE 20 MEQ TAB 40 MEQ PO (08:44)
[2023-12-21] MEDS: predniSONE 20 MG TABLET 60 MG PO (08:44)
== END 2023-12-21 08:54 | disposition home or self-care (01) ==
PROVIDERS: Emergency Medicine; Emergency Provider Emergency Medicine; PCP Family Medicine
DX: M25.531 Pain in right wrist (principal); R79.89 Other specified abnormal findings of blood chemistry; I48.91 Unspecified atrial fibrillation; Z79.01 Long term (current) use of anticoagulants
CPT/HCPCS: 36415; 73110; 80053; 84550; 85025; 85651; 86140; 99284

== ENCOUNTER 2024-05-24 15:52 | Emergency (ER) | payer MEDICARE, SELFPAY ==
[2024-05-24 15:58] VITALS: BP 130/75; PULSE 79; RESP 18; TEMP 37.2; O2SAT 99; BMI 21.5
--- NOTE | 2024-05-24 16:03 | DI.RAD.S_ITS ---
PROCEDURE: XR WRIST RT MIN 3V INDICATIONS: pain TECHNIQUE: 4 views of the wrist were acquired. COMPARISON: [facility], , XR WRIST RT MIN 3V, 12/21/2023, 6:17. FINDINGS: Bones: No fractures or dislocations. No suspicious bony lesions. Carpocarpal joint space narrowing with subchondral sclerosis. Soft tissues: No suspicious soft tissue calcifications. Chondrocalcinosis. IMPRESSION: Moderate wrist osteoarthritis . Chondrocalcinosis, which can be seen in the setting of CPPD, aging, and parathyroid disorders. Dictated by: Brendon Xiao M.D. on 05/24/2024 at 16:41 Approved by: Brendon Xiao M.D. on 05/24/2024 at 16:43
[2024-05-24 16:42] VITALS: PULSE 80
--- NOTE | 2024-05-24 17:13 | ED_ITS ---
<Statement entered by El Delgado, - 05/24/24 18:30> Dr. Delgado: I was immediately available in the department for consultation. I did not actually see the patient. HPI - Extremity Problem General Chief complaint: Extremity Problem,Nontraumatic Stated complaint: slept weird, can no longer move wrist. Time Seen by Provider: 05/24/24 17:00 Source: patient Mode of arrival: Ambulatory History of Present Illness HPI Narrative: Ms. Olivier is a very sweet 78-year-old female with a past medical history of AFib on Eliquis, CHF, hypertension who presents to the emergency department for right wrist pain after sleeping on it wrong last night. She is right-hand dominant. Patient reports falling asleep in her chair with her head resting in her hand so that her wrist was overextended. When she woke up she had pain on the dorsal aspect of the right wrist that is worse with flexion and extension of the wrist. There is an area of swelling and erythema on this area of the wrist. She has no numbness tingling or weakness of the fingers and can still move all of her fingers however she has pain when moving the wrist. She denies fevers, chills, nausea, vomiting, pain in the upper arm. She took Tylenol this morning. Related Data Home Medications Medication Instructions Recorded Confirmed apixaban 5 mg tablet (Eliquis) 5 mg PO BID 12/30/22 05/03/24 dorzolamide 2 % eye drops drp EYE-BOTH 03/25/23 05/03/24 diltiazem HCl 360 mg 360 mg PO DAILY 04/24/24 05/03/24 capsule,extended release 24 hr furosemide 40 mg tablet 40 mg PO DAILY 04/24/24 05/03/24 lisinopril 20 mg tablet 10 mg PO .nightly 04/24/24 05/03/24 potassium chloride 20 mEq 20 meq PO DAILY 04/24/24 05/03/24 tablet,extended release Allergies Allergy/AdvReac Type Severity Reaction Status Date / Time adhesive tape Allergy Unknown Verified 05/03/24 16:13 codeine [CODEINE] Allergy Unknown Verified 05/03/24 16:13 Penicillins [PENICILLINS] Allergy Unknown Verified 05/03/24 16:13 Sulfa (Sulfonamide Allergy Unknown Verified 05/03/24 16:13 Antibiotics) [SULFA (SULFONAMIDE ANTIBIOTICS)] Review of Systems Review of Systems ROS Unobtainable: All systems reviewed & are unremarkable except as noted in HPI and below Patient History Medical History CHF (congestive heart failure) Frequent PVCs PAC (premature atrial contraction) Chest pressure Lower extremity edema Heart palpitations Orthostatic hypertension Fractures (1960) Chickenpox (1954) Measles (1960) Generalized headaches (Unknown) Osteopenia (06/2005) Fecal incontinence (2015) Hypertension (2004) Colon polyps (1989) Surgical History Hx of cholecystectomy (1964) Hx of appendectomy (1957) History of rectal surgery (1990) History of gastric bypass Family History Child Age: 58 Diabetes mellitus Child Age: 53 Diabetes mellitus Sister Age: 72 Diabetes mellitus Sister Age: 70 Diabetes mellitus Sister Age: 68 Diabetes mellitus Family/Other No problems noted. Family/Other No problems noted. Mother Parkinson disease Hypertension Grandfather Heart attack Grandmother Cancer Grandfather No problems noted. Grandmother No problems noted. Father Diabetes mellitus Hypertension Heart disease Social History Smoking Status: Never smoker alcohol intake: current substance use type: does not use Smoking Status: Never smoker alcohol intake frequency: a few times a week Exam Narrative Exam Narrative: GENERAL: 78 year old patient appears stated age. Well-developed patient, in no acute distress. HEAD: Atraumatic. Normocephalic. EXTREMITIES: On the dorsal aspect of the right wrist there is a 2-3 cm area of swelling and slight erythema but no increased warmth or fluctuance. No snuffbox tenderness. There is pain with active and passive flexion and extension of the right wrist. No tenderness to palpation of the phalanxes. Both sensation and strength are intact in the distribution of the median, ulnar, radial nerves bilaterally and she has strong radial pulse bilaterally, brisk capillary refills on the fingers. Initial Vital Signs Initial Vital Signs: Vital Signs Temperature 98.9 F 05/24/24 15:58 Pulse Rate 79 05/24/24 15:58 Respiratory Rate 18 05/24/24 15:58 Blood Pressure 130/75 05/24/24 15:58 Pulse Oximetry 99 05/24/24 15:58 Oxygen Delivery Method Room Air 05/24/24 15:58 Course Orders Ordered: ED Orders 05/24/24 16:03 XR wrist RT min 3V Stat Vital Signs Vital signs: Vital Signs - 8 hr 05/24/24 15:58 05/24/24 16:42 Temperature 98.9 F Pulse Rate 79 Pulse Rate [Right Radial] 80 Respiratory Rate 18 Blood Pressure 130/75 Pulse Oximetry 99 Oxygen Delivery Method Room Air MDM - Extremity (Nontraumatic) Imaging Data Right Wrist X-Ray: Radiologist's Impression: PROCEDURE: XR WRIST RT MIN 3V INDICATIONS: pain TECHNIQUE: 4 views of the wrist were acquired. COMPARISON: [facility], , XR WRIST RT MIN 3V, 12/21/2023, 6:17. FINDINGS: Bones: No fractures or dislocations. No suspicious bony lesions. Carpocarpal joint space narrowing with subchondral sclerosis. Soft tissues: No suspicious soft tissue calcifications. Chondrocalcinosis. IMPRESSION: Moderate wrist osteoarthritis . Chondrocalcinosis, which can be seen in the setting of CPPD, aging, and parathyroid disorders. [facility] Narrative Medical decision making narrative: 78-year-old female with a past medical history of AFib on Eliquis, CHF, hypertension who presents to the emergency department for right wrist pain after sleeping on it wrong last night. She is right-hand dominant. Differential diagnosis includes but is not limited to wrist sprain, strain, fracture, gout, nerve palsy, etc. On exam patient is in no acute distress, nontoxic appearing, vital signs within normal limits. Her right hand is neurovascularly intact but she does have an area of pain and swelling on the dorsal aspect of the wrist after it being in a overextended position for a prolonged period of time. Right wrist x-ray was obtained in triage revealing moderate wrist osteoarthritis, chondrocalcinosis, no fractures or dislocations. Her wrist feels better when she holds compression on it, we will provide her with right wrist splint for support and also recommended rice therapy, Tylenol, Voltaren gel. Advised she follow up with her primary care doctor but if she has persistent symptoms she should follow up with an orthopedic doctor as well. She verbalized understanding of all information and is happy with this plan. She is stable for discharge home. Discharge Plan Departure Patient Disposition: Home Clinical Impression: Sprain and strain of right wrist Osteoarthritis of right wrist Qualifiers: Osteoarthritis type: unspecified Qualified Code(s): M19.031 - Primary osteoarthritis, right wrist Instructions: DI for Wrist Sprain Activity Restrictions/Additional Instructions: Thank you for coming to the emergency department. Today you were evaluated for right wrist pain after sleeping on it wrong. Your x-ray does not reveal any fractures or dislocations but it does show osteoarthritis of the wrist and some calcium deposits in the wrist. You have been placed into a right wrist brace for support and I would also like you to take Tylenol and ice the wrist. Please follow up with your primary care doctor for further evaluation. You can apply topical Voltaren Gel to the wrist as well. Please use RICE therapy for your pain in addition to acetaminophen. Rest the painful area. Ice the area of pain/swelling for at least 15 minutes, 4x a day. Compress the area of swelling using a brace, wrap, or splint if applied. Elevate the painful or swollen extremity by supporting it above the level of the heart with pillows when sitting or laying. Please follow up with your primary care doctor within the next 2-3 days for ER follow-up. (If you do not have a PCP you can call [phone]. ?to schedule an appointment with an [facility] Primary Care Provider) IF YOU DEVELOP ANY NEW OR WORSENING SYMPTOMS, RETURN TO THE ER! Please read the attached instructions, they highlight more specific treatments and interventions for you at home. Thank you for letting me participate in your care, Comfort Mckeon PA-C Prescriptions: No Action Eliquis 5 mg tablet 5 mg PO BID dorzolamide 2 % drops EYE-BOTH furosemide 40 mg tablet 40 mg PO DAILY diltiazem HCl 360 mg capsule,extended release 24hr 360 mg PO DAILY potassium chloride 20 mEq tablet extended release 20 meq PO DAILY lisinopril 20 mg tablet 10 mg PO .nightly Referrals: Yunior Barnett DO [Primary Care Provider] - Stand Alone Forms: Patient Portal/API/Survey
[2024-05-24 18:21] VITALS: BP 128/70; PULSE 79; RESP 15; TEMP 36.8; O2SAT 98
== END 2024-05-24 18:21 | disposition home or self-care (01) ==
PROVIDERS: Emergency Provider Physician Assistant; PCP Family Medicine
DX: S63.501A Unspecified sprain of right wrist, initial encounter (principal); S66.911A Strain of unspecified muscle, fascia and tendon at wrist and hand level, right hand, initial encounter; M19.031 Primary osteoarthritis, right wrist; X58.XXXA Exposure to other specified factors, initial encounter
CPT/HCPCS: 73110; 99281; 99283

== ENCOUNTER 2024-10-20 14:55 | Emergency (ER) | payer MEDICARE, SELFPAY ==
[2024-10-20] VITALS (22 sets, daily range): BP systolic 122–151; BP diastolic 60–77; PULSE 66–97; RESP 20; TEMP 36.8; O2SAT 92–99
--- NOTE | 2024-10-20 15:04 | DI.RAD.S_ITS ---
PROCEDURE: XR HIP W PEL IF DONE RT 2V INDICATIONS: fall,hip/femur pain TECHNIQUE: AP pelvis with lateral view(s) of the right hip(s). COMPARISON: None. FINDINGS: Bones: No fractures or dislocations. Pelvic ring appears intact. No suspicious bony lesions. Degenerative changes of the hips, right greater than left, are shown. Soft tissues: The visualized bowel gas pattern is normal. No suspicious soft tissue calcifications. A nerve stimulator overlies the right hemipelvis. IMPRESSION: Osteoarthritis without acute abnormality. Dictated by: Lyndsey Brown M.D. on 10/20/2024 at 15:04 Approved by: Lyndsey Brown M.D. on 10/20/2024 at 15:05
--- NOTE | 2024-10-20 15:04 | DI.RAD.S_ITS ---
PROCEDURE: XR FEMUR RT 1V INDICATIONS: fall,hip/ TECHNIQUE: A single view of the femur was acquired. COMPARISON: None. FINDINGS: Bones: No fractures or dislocations. No suspicious bony lesions. Joint space narrowing and osteophytosis at the femoroacetabular and knee joints are shown. Soft tissues: No suspicious soft tissue calcifications or masses. IMPRESSION: No acute bony abnormality. Dictated by: Lyndsey Brown M.D. on 10/20/2024 at 15:02 Approved by: Lyndsey Brown M.D. on 10/20/2024 at 15:03
--- NOTE | 2024-10-20 15:56 | ED.LOWEXIN ---
HPI - Extremity Injury (Lower) General Chief Complaint: Extremity Injury, Lower Stated Complaint: [facility] gl[facility] w/ hip px Time Seen by Provider: 10/20/24 15:04 Source: patient and EMS Mode of arrival: Ambulatory Related Data Home Medications ?Medication ?Instructions ?Recorded ?Confirmed apixaban 5 mg tablet (Eliquis) 5 mg PO BID 12/30/22 06/01/24 dorzolamide 2 % eye drops drp EYE-BOTH 03/25/23 06/01/24 diltiazem HCl 360 mg 360 mg PO DAILY 04/24/24 06/01/24 capsule,extended release 24 hr furosemide 40 mg tablet 40 mg PO DAILY 04/24/24 06/01/24 lisinopril 20 mg tablet 10 mg PO .nightly 04/24/24 06/01/24 potassium chloride 20 mEq 20 meq PO DAILY 04/24/24 06/01/24 tablet,extended release Previous Rx's ?Medication ?Instructions ?Recorded prednisone 10 mg tablet 10 mg PO DAILY #7 tabs 08/30/24 Allergies Allergy/AdvReac Type Severity Reaction Status Date / Time adhesive tape Allergy Unknown Verified 10/20/24 15:09 codeine (CODEINE) Allergy Unknown Verified 10/20/24 15:09 Penicillins (PENICILLINS) Allergy Unknown Verified 10/20/24 15:09 Sulfa (Sulfonamide Allergy Unknown Verified 10/20/24 15:09 Antibiotics) (SULFA (SULFONAMIDE ANTIBIOTICS)) Patient History Medical History (Updated 06/08/24 @ 00:00 by ) 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 CHF (congestive heart failure) Frequent PVCs PAC (premature atrial contraction) Chest pressure Lower extremity edema Heart palpitations Orthostatic hypertension Fractures (1960) Chickenpox (1954) Measles (1960) Generalized headaches (Unknown) Osteopenia (06/2005) Fecal incontinence (2016) Hypertension (2004) Colon polyps (1989) Surgical History Hx of cholecystectomy (1964) Hx of appendectomy (1957) History of rectal surgery (1990) History of gastric bypass Family History Child Age: 58 Diabetes mellitus Child Age: 53 Diabetes mellitus Sister Age: 72 Diabetes mellitus Sister Age: 70 Diabetes mellitus Sister Age: 68 Diabetes mellitus Family/Other No problems noted. Family/Other No problems noted. Mother Parkinson disease Hypertension Grandfather Heart attack Grandmother Cancer Grandfather No problems noted. Grandmother No problems noted. Father Diabetes mellitus Hypertension Heart disease Social History alcohol intake: current substance use type: does not use Smoking Status: Never smoker alcohol intake frequency: a few times a week Exam Initial Vital Signs Initial Vital Signs: Vital Signs Temperature 98.3 F 10/20/24 15:09 Pulse Rate 66 10/20/24 15:09 Respiratory Rate 20 10/20/24 15:09 Blood Pressure 149/66 H 10/20/24 15:09 Pulse Oximetry 99 10/20/24 15:09 Oxygen Delivery Method Room Air 10/20/24 15:09 Course Orders Ordered: ED Orders 10/20/24 15:04 XR femur RT 1V Stat XR hip w pel RT 2V Stat Vital Signs Vital signs: Vital Signs - 8 hr 10/20/24 15:09 Temperature 98.3 F Pulse Rate 66 Respiratory Rate 20 Blood Pressure 149/66 H Pulse Oximetry 99 Oxygen Delivery Method Room Air Discharge Plan Departure Prescriptions: No Action prednisone 10 mg tablet 10 mg PO DAILY Qty: 7 0RF Eliquis 5 mg tablet 5 mg PO BID dorzolamide 2 % drops EYE-BOTH furosemide 40 mg tablet 40 mg PO DAILY diltiazem HCl 360 mg capsule,extended release 24hr 360 mg PO DAILY potassium chloride 20 mEq tablet extended release 20 meq PO DAILY lisinopril 20 mg tablet 10 mg PO .nightly Referrals: Yunior Barnett DO [Primary Care Provider, Family Practice]
[2024-10-20] MEDS: ONDANSETRON 4 MG/2 ML INJ IV ×2 (17:01→22:18)
--- NOTE | 2024-10-20 18:06 | ED.LOWEXIN ---
HPI - Extremity Injury (Lower) General Chief Complaint: Extremity Injury, Lower Stated Complaint: [facility] w/ hip px Time Seen by Provider: 10/20/24 15:04 Source: patient and EMS Mode of arrival: Ambulatory History of Present Illness HPI Narrative: 79-year-old female with a ground level fall right over her right hip area as she was trying to go up her deck. Patient comes in via paramedics and denies injury to any other area. No neurovascular signs. Related Data Home Medications ?Medication ?Instructions ?Recorded ?Confirmed apixaban 5 mg tablet (Eliquis) 5 mg PO BID 12/30/22 06/01/24 dorzolamide 2 % eye drops drp EYE-BOTH 03/25/23 06/01/24 diltiazem HCl 360 mg 360 mg PO DAILY 04/24/24 06/01/24 capsule,extended release 24 hr furosemide 40 mg tablet 40 mg PO DAILY 04/24/24 06/01/24 lisinopril 20 mg tablet 10 mg PO .nightly 04/24/24 06/01/24 potassium chloride 20 mEq 20 meq PO DAILY 04/24/24 06/01/24 tablet,extended release Previous Rx's ?Medication ?Instructions ?Recorded prednisone 10 mg tablet 10 mg PO DAILY #7 tabs 08/30/24 ondansetron 4 mg disintegrating 4 mg PO Q8H PRN nausea and 10/21/24 tablet vomiting #14 tabs oxycodone-acetaminophen 5 mg-325 1 tab PO Q6H PRN pain #14 tabs 10/21/24 mg tablet Allergies Allergy/AdvReac Type Severity Reaction Status Date / Time adhesive tape Allergy Unknown Verified 10/20/24 15:09 codeine (CODEINE) Allergy Unknown Verified 10/20/24 15:09 Penicillins (PENICILLINS) Allergy Unknown Verified 10/20/24 15:09 Sulfa (Sulfonamide Allergy Unknown Verified 10/20/24 15:09 Antibiotics) (SULFA (SULFONAMIDE ANTIBIOTICS)) Review of Systems Review of Systems ROS Unobtainable: All systems reviewed & are unremarkable except as noted in HPI and below Patient History Medical History (Updated 10/21/24 @ 00:47 by Milagros Salomon MD) 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 CHF (congestive heart failure) Frequent PVCs PAC (premature atrial contraction) Chest pressure Lower extremity edema Heart palpitations Orthostatic hypertension Fractures (1960) Chickenpox (1954) Measles (1960) Generalized headaches (Unknown) Osteopenia (06/2005) Fecal incontinence (2016) Hypertension (2004) Colon polyps (1989) Surgical History Hx of cholecystectomy (1964) Hx of appendectomy (1957) History of rectal surgery (1990) History of gastric bypass Family History Child Age: 58 Diabetes mellitus Child Age: 53 Diabetes mellitus Sister Age: 72 Diabetes mellitus Sister Age: 70 Diabetes mellitus Sister Age: 68 Diabetes mellitus Family/Other No problems noted. Family/Other No problems noted. Mother Parkinson disease Hypertension Grandfather Heart attack Grandmother Cancer Grandfather No problems noted. Grandmother No problems noted. Father Diabetes mellitus Hypertension Heart disease Social History Smoking Status: Never smoker alcohol intake: current substance use type: does not use Smoking Status: Never smoker alcohol intake frequency: a few times a week Exam Narrative Exam Narrative: GENERAL: [] year old patient appears stated age. Well-developed patient, in mild distress. HEAD: Atraumatic. Normocephalic. EYES: Pupils equal round and reactive. Extraocular motions intact. No scleral icterus. No injection or drainage. ENT: Nose without bleeding, purulent drainage. Throat without erythema, tonsillar hypertrophy or exudate. Airway patent. NECK: Trachea midline. Non tender CARDIOVASCULAR: Regular rate and rhythm without murmurs, gallops, or rubs. RESPIRATORY: Clear to auscultation. Breath sounds equal bilaterally. No wheezes, rales, or rhonchi. GASTROINTESTINAL: Abdomen soft, non-tender, nondistended. EXTREMITIES: pain with palpation along right upper thigh area, nv intact, pulses 2+ BACK: Nontender without deformity or crepitance. No flank tenderness. NEURO: AOx3. SKIN: No rash or erythema of visible areas Initial Vital Signs Initial Vital Signs: Vital Signs Pulse Rate 72 10/20/24 15:05 Pulse Oximetry 99 10/20/24 15:05 Course Course Course Narrative: Patient's initial x-rays of her right hip and femur did not show any acute fracture or dislocation. Will do a trial Dilaudid 0.5 mg IV and some Zofran for her nausea. Orders Ordered: Discontinued Medications Acetaminophen (Acetaminophen 325 Mg Tablet) 650 mg PO NOW ONE Stop: 10/20/24 23:33 Last Admin: 10/20/24 23:38 Dose: 650 mg Documented By: SYD Hydromorphone HCl (Hydromorphone Hcl 0.5 Mg/0.5 Ml Syringe) 0.25 mg IV NOW ONE Stop: 10/20/24 16:17 Last Admin: 10/20/24 16:55 Dose: 0.25 mg Documented By: SYD Hydromorphone HCl (Hydromorphone Hcl 0.5 Mg/0.5 Ml Syringe) 0.5 mg IV NOW ONE Stop: 10/20/24 17:32 Last Admin: 10/20/24 18:00 Dose: Not Given Documented By: SYD Hydromorphone HCl (Hydromorphone Hcl 0.5 Mg/0.5 Ml Syringe) 0.25 mg IV NOW ONE Stop: 10/20/24 17:34 Last Admin: 10/20/24 17:34 Dose: 0.25 mg Documented By: SYD Hydromorphone HCl (Hydromorphone Hcl 0.5 Mg/0.5 Ml Syringe) 0.5 mg IV NOW ONE Stop: 10/20/24 20:08 Last Admin: 10/20/24 20:28 Dose: 0.5 mg Documented By: SYD Hydroxyzine HCl (Hydroxyzine Hcl 25 Mg Tablet) 25 mg PO NOW ONE Stop: 10/20/24 18:10 Last Admin: 10/20/24 18:23 Dose: 25 mg Documented By: ZAMZAM Ondansetron HCl (Ondansetron 4 Mg/2 Ml Inj) 4 mg IV NOW ONE Stop: 10/20/24 16:19 Last Admin: 10/20/24 17:01 Dose: 4 mg Documented By: SYD Ondansetron HCl (Ondansetron 4 Mg/2 Ml Inj) 4 mg IV NOW ONE Stop: 10/20/24 22:16 Last Admin: 10/20/24 22:18 Dose: 4 mg Documented By: SYD Ondansetron HCl (Ondansetron 4 Mg Odt Prepack) 1 bottle MISC DIRECTED ONE Stop: 10/21/24 00:54 Last Admin: 10/21/24 00:56 Dose: 1 bottle Documented By: SYD Oxycodone/Acetaminophen (Oxycodone/Acetaminophen 5/325 Tablet) 1 tab PO NOW ONE Stop: 10/20/24 23:33 Last Admin: 10/20/24 23:38 Dose: 1 tab Documented By: SYD Oxycodone/Acetaminophen (Oxycodone/Apap 5/325 Prepack) 1 bottle MISC DIRECTED ONE Stop: 10/21/24 00:54 Last Admin: 10/21/24 00:57 Dose: 1 bottle Documented By: SYD Reevaluation(s) Reevaluation #1: Status post Dilaudid, patient is still having some pain along her anterior upper thigh of her right side but slightly improved. Vital Signs Vital signs: Vital Signs - 8 hr 10/20/24 15:09 Temperature 98.3 F Pulse Rate 66 Respiratory Rate 20 Blood Pressure 149/66 H Pulse Oximetry 99 Oxygen Delivery Method Room Air MDM - Extremity Injury (Lower) Differential Diagnosis Differential diagnosis: Likely fracture of femur, fracture of hip and other (muscular strain ) Condition is:: Inadequately Controlled Lab Data 10/20/24 15:00 10/20/24 15:00 Labs: Lab Results 10/20/24 Range/Units 15:00 WBC 4.5 (4.5-11.0) X10^3/uL RBC 3.63 L (4.0-5.2) X10^6/uL Hgb 11.5 L (12.0-16.0) g/dL Hct 35.3 L (36-46) % MCV 97.1 (80-100) fL MCH 31.7 (26-34) PG MCHC 32.7 (30-36) % RDW 13.5 (11.6-14.8) % Plt Count 214 (150-400) X10^3/uL Neut % (Auto) 65.1 (50-75) % Lymph % (Auto) 20.3 L (25-40) % Archuleta % (Auto) 10.5 (3-14) % Eos % (Auto) 0.9 L (2-4) % Baso % (Auto) 3.2 H (0-2) % Neut # (Auto) 2900 (5081-0895) /uL Lymph # (Auto) 900 L (5928-4304) /uL Archuleta # (Auto) 500 (0-900) /uL Eos # (Auto) 0 (0-450) /uL Baso # (Auto) 100 (0-100) /uL Sodium 140 (137-145) mmol/L Potassium 4.5 (3.4-5.1) mmol/L Chloride 106 (98-107) mmol/L Carbon Dioxide 25 (22-32) mmol/L BUN 27 H (7-17) mg/dL Creatinine 0.89 (0.52-1.04) mg/dL Estimated GFR > 60 (>60) mL/min BUN/Creatinine Ratio 30.3 H (6-22) Glucose 134 H (70-99) mg/dL Calcium 9.3 (8.4-10.2) mg/dL Total Bilirubin 0.5 (0.2-1.3) mg/dL AST 55 H (14-36) IU/L ALT 49 H (<35) IU/L Alkaline Phosphatase 251 H (38-126) U/L Total Protein 7.0 (6.3-8.2) g/dL Albumin 4.3 (3.5-5.0) g/dL Globulin 2.7 (1.7-4.1) g/dL Albumin/Globulin Ratio 1.6 (1.0-2.8) MDM Narrative Medical decision making narrative: The patient had a right hip x-ray, CT of the abdomen and pelvis, hip CT all did not reveal an acute fracture, dislocation or a reason for her pain. Patient ended up with a contusion diagnosis and will be treated as such. Patient was seen and discharged by Dr. Salomon who ended up giving the patient some Percocet and Zofran. There was no evidence of bleeding as well in the area. No concern for compression fracture. Discharge Plan Departure Patient Disposition: Home Clinical Impression: Fall Qualifiers: Encounter type: initial encounter Qualified Code(s): W19.XXXA - Unspecified fall, initial encounter Acute hip pain Qualifiers: Laterality: right Qualified Code(s): M25.551 - Pain in right hip Low back pain Qualifiers: Chronicity: acute Back pain laterality: right Sciatica presence: without sciatica Qualified Code(s): M54.50 - Low back pain, unspecified Instructions: DI for Contusion Activity Restrictions/Additional Instructions: Thank you for coming in today Despite your significant pain, I did not find evidence for broken thigh bone, hip, pelvis, blood accumulating in your hip your low back, your buttock or along her spine. Similarly there was no evidence for bleeding inside your abdomen or new compression fractures You hurt because of your fall and you are going to hurt more tomorrow For medium pain you can use 2 extra-strength Tylenol up to 3 times a day. For severe pain you can use 1 extra-strength Tylenol and 1 Percocet every 6 hours. Percocet is a narcotic and will cause constipation, please use a stool softener if you notice that you have not had a bowel movement in a day. I have also given you a prescription for ondansetron to help with nausea if you do have any Both prescriptions were electronically transmitted to [facility] in [place] Do use your walker for stability, even though it hurts, being up and moving will help you heal faster If you find that you are getting worse or develop any new symptoms, please feel free to return to the emergency department for further evaluation. Prescriptions: New oxycodone-acetaminophen 5-325 mg tablet 1 tab PO Q6H PRN (Reason: pain) Qty: 14 0RF ondansetron 4 mg tablet,disintegrating 4 mg PO Q8H PRN (Reason: nausea and vomiting) Qty: 14 0RF No Action prednisone 10 mg tablet 10 mg PO DAILY Qty: 7 0RF Eliquis 5 mg tablet 5 mg PO BID dorzolamide 2 % drops EYE-BOTH furosemide 40 mg tablet 40 mg PO DAILY diltiazem HCl 360 mg capsule,extended release 24hr 360 mg PO DAILY potassium chloride 20 mEq tablet extended release 20 meq PO DAILY lisinopril 20 mg tablet 10 mg PO .nightly Referrals: Yunior Barnett DO [Primary Care Provider, Family Practice] Stand Alone Forms: Patient Portal/API ED Sign-out Sign Out Provider Sign Out Attestation: Signed out patient to next provider Dr. Rasheed
--- NOTE | 2024-10-20 18:09 | DI.CT.S_ITS ---
PROCEDURE: CT HIP RIGHT WITHOUT CON INDICATIONS: GLF Rt hip pain TECHNIQUE: Noncontrast 3 mm axial sections acquired through the bony pelvis. Additional 3 mm axial sections acquired through the symptomatic hip joint, with coronal and sagittal reformats. COMPARISON: None. FINDINGS: Image quality: Excellent. Bones: There is anatomic alignment. No focal osseous lesion seen. There is mild to moderate degenerative disease in the right hip joint, with some synovial calcifications. Soft tissues: No soft tissue mass or confluent hematoma seen. IMPRESSION: Degenerative changes, no definite acute traumatic osseous lesions in the right hip. Dictated by: Shay Hong M.D. on 10/20/2024 at 18:35 Approved by: Shay Hong M.D. on 10/20/2024 at 18:42
--- NOTE | 2024-10-20 20:07 | DI.CT.S_ITS ---
PROCEDURE: CT ABDOMEN PELVIS W CON INDICATIONS: fell, point tender L1/T12 TECHNIQUE: After the administration of intravenous contrast, axial sections acquired from the lung bases to the pubic symphysis. Coronal and sagittal reformats were performed. For radiation dose reduction, the following was used: automated exposure control, adjustment of mA and/or kV according to patient size. COMPARISON: [facility], CT, CT HIP RIGHT WITHOUT CON, 10/20/2024, 18:14. (Additional prior imaging is not available for review from the archive at the time of this dictation.) FINDINGS: Image quality: Diagnostic. Lower Chest: Pacer leads are partially seen. ABDOMEN: Liver: No solid mass. Diffuse fatty liver infiltration is noted. Gallbladder: No gallbladder is seen. Biliary ducts: The extrahepatic common bile duct measures up to 13 mm. No intrahepatic biliary ductal dilatation is seen. Pancreas: No ductal dilation. Spleen: Size is within normal limits. Adrenal Glands: No adrenal nodules. Kidneys and Ureters: No hydronephrosis. No solid mass. No complex renal cystic lesion which requires follow up. Stomach and Bowel: Prominence of the stomach is seen, which is moderately fluid filled. No dilated loops of small bowel are seen. Gaseous prominence can be seen in the colon. The rectal vault measures 7.5 cm transversely. Peritoneum: No abnormal intraperitoneal fluid. No free air. Ventral Wall: No significant ventral hernia. Abdominal Nodes: No retroperitoneal or mesenteric adenopathy by size criteria. Vessels: Aorta and inferior vena cava are normal in size. PELVIS: Pelvic Organs: No adnexal masses are seen on either side. Bladder: No bladder wall thickening, accounting for underdistention. Pelvic Nodes: No enlarged lymph nodes. Miscellaneous: No inguinal hernias are seen. Bones: In this patient with this given history, scrutiny is given to the lower thoracic spine. No displaced fractures are seen. Generalized degenerative changes are seen. IMPRESSION: No fracture can be seen involving the lower thoracic spine. No fractures are seen elsewhere. Moderate fluid distention of the stomach. Additional findings: Pacer leads Fatty liver infiltration Cholecystectomy, with mild biliary ductal dilatation Dictated by: Cedric Jimenez M.D. on 10/20/2024 at 21:22 Approved by: Cedric Jimenez M.D. on 10/20/2024 at 21:26
[2024-10-20 21:31] LABS: Add Manual Diff / Slide Review NO; Hematocrit 35.3 % (36-46); Hemoglobin 11.5 g/dL (12.0-16.0); Lymphocytes Absolute Auto 900 /uL (1100-4500); Mean Corpuscular HGB Conc 32.7 % (30-36); Mean Corpuscular Hemoglobin 31.7 PG (26-34); Mean Corpuscular Volume 97.1 fL (80-100); Platelet Count 214 X10^3/uL (150-400)
[2024-10-20 21:34] LABS: Alanine Aminotransferase 49 IU/L (<35); Albumin 4.3 g/dL (3.5-5.0); Albumin Globulin Ratio 1.6 (1.0-2.8); Alkaline Phosphatase 251 U/L (38-126); Blood Urea Nitrogen 27 mg/dL (7-17); Calcium 9.3 mg/dL (8.4-10.2); Carbon Dioxide 25 mmol/L (22-32); Chloride 106 mmol/L (98-107); Estimated Glomerular Filt Rate > 60 mL/min (>60); Globulin 2.7 g/dL (1.7-4.1); Glucose 134 mg/dL (70-99); HEMOLYSIS 32 (0-50); Potassium 4.5 mmol/L (3.4-5.1); Sodium 140 mmol/L (137-145); Total Protein 7.0 g/dL (6.3-8.2)
[2024-10-20] MEDS: ACETAMINOPHEN 325 MG TABLET 650 MG PO (23:38)
[2024-10-20] MEDS: OXYCODONE/ACETAMINOPHEN 5/325 TABLET 1 TAB PO (23:38)
[2024-10-21] VITALS: BP 151/72; PULSE 100; O2SAT 96
[2024-10-21] MEDS: ONDANSETRON 4 MG ODT PREPACK 1 BOTTLE MISC (00:56)
[2024-10-21] MEDS: OXYCODONE/APAP 5/325 PREPACK 1 BOTTLE MISC (00:57)
== END 2024-10-21 01:00 | disposition home or self-care (01) ==
PROVIDERS: Emergency Provider Emergency Medicine; PCP Family Medicine
DX: M25.551 Pain in right hip (principal); M54.50 Low back pain, unspecified; W18.30XA Fall on same level, unspecified, initial encounter
CPT/HCPCS: 73502; 73551; 73700; 74177; 80053; 85025; 96374; 96375; 96376; 99284; A9270; J1171; J2405; Q9967